=== PATIENT | female | born 1970 | race Caucasian/White ===

== ENCOUNTER → 2017-02-21 | Outpatient (CLI) | payer MEDICAID ==
--- NOTE | 2017-02-25 12:41 | MM ---
Reason for exam: follow-up at short interval from prior study. Last mammogram was performed 7 months ago. History: Patient is postmenopausal. Family history of breast cancer in cousin at age 52. Physical Findings: Nurse did not find any significant physical abnormalities on exam. MG 3D Diag Mammo W/Cad XENA Bilateral CC and MLO view(s) were taken. Prior study comparison: August 05, 2016, bilateral MG 3d screening mammo w/cad. July 01, 2015, bilateral MG screening mammo w CAD. The breast tissue is almost entirely fat. The tiny 3mm nodules 1 on each side are unchanged. No significant new findings when compared with previous films. These results were verbally communicated with the patient and result sheet given to the patient on 02/21/17. ASSESSMENT: Negative, BI-RAD 1 RECOMMENDATION: Routine screening mammogram of both breasts in 1 year.
== END | disposition home or self-care (01) ==
LOC: RADMAMWWP 06:52
PROVIDERS: ATTEND Obstetrics & Gynecology
DX: R92.8 Other abnormal and inconclusive findings on diagnostic imaging of breast (principal)
CPT/HCPCS: G0204; G0279

== ENCOUNTER → 2017-04-28 | Outpatient (CLI) | payer MEDICAID ==
--- NOTE | 2017-04-28 10:36 | US ---
EXAMINATION TYPE: US kidneys/renal and bladder DATE OF EXAM: 04/28/2017 COMPARISON: CT abdomen and pelvis November 01, 2015 CLINICAL HISTORY: G89.29 Chronic back pain. Rt back pain since December 2016, no known injury EXAM MEASUREMENTS: Right Kidney: 9.6 x 4.9 x 5.6 cm Left Kidney: 10.9 x 5.2 x 5.7 cm Right Kidney: wnl Left Kidney: wnl Bladder: wnl Bilateral Jets seen: yes There is no evidence for hydronephrosis at this point in time. No nephrolithiasis is seen. No zahra s are identified. The urinary bladder is anechoic. Bilateral ureteral jets are seen. IMPRESSION: No significant finding is seen to account for patient's symptoms.
== END | disposition home or self-care (01) ==
LOC: RADUSWWP 10:10
PROVIDERS: ATTEND Internal Medicine
DX: G89.29 Other chronic pain (principal)
CPT/HCPCS: 76770

== ENCOUNTER 2018-02-07 17:55 | Emergency (ER) | payer MEDICAID ==
[2018-02-07 18:00] VITALS: RESP 18; TEMP 97.9
[2018-02-07] MEDS ORDERED: SODIUM CHLORIDE 0.9% 500 ML IV STA (18:05)
[2018-02-07 18:34] LABS: Basophils # (A) 0.1 k/uL (0-0.2); Basophils % (A) 1 %; Eosinophils # (A) 0.5 k/uL (0-0.7); Eosinophils % (A) 4 %; HCT 41.7 % (34.0-46.0); HGB 14.2 gm/dL (11.4-16.0); Lymphocytes # (A) 1.9 k/uL (1.0-4.8); Lymphocytes % (A) 15 %; MCH 29.7 pg (25.0-35.0); MCV 87.3 fL (80.0-100.0); Mean Platelet Volume 8.8; Monocytes # (A) 0.7 k/uL (0-1.0); Monocytes % (A) 5 %; Neutrophils # (A) 9.3 k/uL (1.3-7.7); Neutrophils % (A) 74 %; Platelet Count 191 k/uL (150-450); RBC 4.78 m/uL (3.80-5.40); RDW 12.8 % (11.5-15.5); WBC 12.6 k/uL (3.8-10.6)
--- NOTE | 2018-02-07 18:47 | XR ---
EXAMINATION TYPE: XR KUB DATE OF EXAM: 02/07/2018 COMPARISON: NONE HISTORY: Pain TECHNIQUE: One view abdominal series FINDINGS: The osseous structures are intact. The bowel gas pattern is nonspecific. Lung bases are clear. Surg ical clips in the gallbladder fossa. Arthropathy of the hips. IMPRESSION: 1. Nonspecific abdomen.
--- NOTE | 2018-02-07 18:47 | XR ---
EXAMINATION TYPE: XR chest 2V DATE OF EXAM: 02/07/2018 COMPARISON: NONE TECHNIQUE: PA and lateral views submitted. HISTORY: Cough FINDINGS: The lungs are clear and there is no pneumothorax, pleural effusion, or focal pneumonia. Hypertrophi c and degenerative change of the spine. IMPRESSION: 1. No acute process.
[2018-02-07 18:48] LABS: Albumin 4.1 g/dL (3.5-5.0); Calcium 9.6 mg/dL (8.4-10.2); Potassium 4.1 mmol/L (3.5-5.1); Total Bilirubin 0.4 mg/dL (0.2-1.3); Total Protein 7.3 g/dL (6.3-8.2)
[2018-02-07 18:48] LABS: Appearance,Urine Cloudy (Clear); Bacteria,Urine Rare /hpf; Bilirubin,Urine Negative (Negative); Blood,Urine Negative (Negative); Color,Urine Yellow; Glucose,Urine (UA) Negative (Negative); Ketones,Urine Trace (Negative); Leukocyte Esterase,Urine Small (Negative); Mucus,Urine Rare /hpf; Nitrite,Urine Negative (Negative); Protein,Urine Negative (Negative); Specific Gravity,Urine 1.017 (1.001-1.035); Squamous Epithelial Cell,Urine 7 /hpf (0-4); WBC,Urine 5 /hpf (0-5)
[2018-02-07 19:02] VITALS: BP 139/77; PULSE 86
--- NOTE | 2018-02-07 19:05 | ED ---
General Adult HPI - General Chief complaint: Abdominal Pain Stated complaint: Rib/Breast pain Time Seen by Provider: 02/07/18 18:01 Source: patient, RN notes reviewed Mode of arrival: ambulatory Limitations: no limitations - History of Present Illness Initial comments: This a 47-year-old female presents emergency department with chief complaint of right-sided rib pain. Patient states she had no trauma but states it started hurting today. Patient states is worse with movement and deep inspiration. She has no associated shortness of breath. She does admit that she's been coughing for last month. Denies any abdominal pain she's had a prior closed second denies any nausea vomiting diarrhea constipation. No fevers no chills. Patient states that she is a smoker. - Related Data Home Medications Medication Instructions Recorded Confirmed Albuterol Sulfate [Proair Hfa] 8.5 gm DAILY 07/31/15 11/01/15 Previous Rx's Medication Instructions Recorded Lactulose [Constulose] 10 gm PO DAILY 7 Days ml 11/01/15 Acetaminophen-Codeine 300-30mg 1 tab PO Q4H PRN #14 tablet 02/07/18 [Tylenol #3] Ibuprofen [Motrin] 600 mg PO Q8HR PRN #30 tab 02/07/18 Allergies Allergy/AdvReac Type Severity Reaction Status Date / Time No Known Allergies Allergy Verified 11/01/15 15:00 Review of Systems ROS Statement: Those systems with pertinent positive or pertinent negative responses have been documented in the HPI. ROS Other: All systems not noted in ROS Statement are negative. Past Medical History Past Medical History: Asthma History of Any Multi-Drug Resistant Organisms: None Reported Past Surgical History: Adenoidectomy, Section, Cholecystectomy, Orthopedic Surgery, Tonsillectomy Past Psychological History: No Psychological Hx Reported Smoking Status: Current every day smoker Past Alcohol Use History: None Reported, Occasional Past Drug Use History: None Reported General Exam Limitations: no limitations General appearance: alert, in no apparent distress Head exam: Present: atraumatic, normocephalic, normal inspection Neck exam: Present: normal inspection, full ROM. Absent: tenderness, meningismus, lymphadenopathy Respiratory exam: Present: normal lung sounds bilaterally, chest wall tenderness (Moderate anterior to lateral right-sided). Absent: respiratory distress, wheezes, rales, rhonchi, stridor Cardiovascular Exam: Present: regular rate, normal rhythm, normal heart sounds. Absent: systolic murmur, diastolic murmur, rubs, gallop, clicks GI/Abdominal exam: Present: soft, normal bowel sounds. Absent: distended, tenderness, guarding, rebound, rigid Course Vital Signs 02/07/18 17:57 Temperature 97.9 F Pulse Rate 89 Respiratory 18 Rate Blood Pressure 137/80 O2 Sat by Pulse 97 Oximetry Medical Decision Making - Medical Decision Making 47-year-old female presents to the ER for right rib pain. Patient's pain is reproducible into more related to costochondritis she has had a cough for about a month but is a smoker. Patient x-ray reviewed no evidence of pneumothorax or pneumonia. no resting shortness of breath. Patient has no abdominal pain. Lab work was reviewed. Patient will be discharged at this time with anti -inflammatories and pain medication. Return parameters were discussed. - Lab Data Result diagrams: 02/07/18 18:21 02/07/18 18:21 Lab Results 02/07/18 02/07/18 02/07/18 Range/Units 18:21 18:21 18:30 WBC 12.6 H (3.8-10.6) k/uL RBC 4.78 (3.80-5.40) m/uL Hgb 14.2 (11.4-16.0) gm/dL Hct 41.7 (34.0-46.0) % MCV 87.3 (80.0-100.0) fL MCH 29.7 (25.0-35.0) pg MCHC 34.0 (31.0-37.0) g/dL RDW 12.8 (11.5-15.5) % Plt Count 191 (150-450) k/uL Neutrophils % 74 % Lymphocytes % 15 % Monocytes % 5 % Eosinophils % 4 % Basophils % 1 % Neutrophils # 9.3 H (1.3-7.7) k/uL Lymphocytes # 1.9 (1.0-4.8) k/uL Monocytes # 0.7 (0-1.0) k/uL Eosinophils # 0.5 (0-0.7) k/uL Basophils # 0.1 (0-0.2) k/uL Sodium 141 (137-145) mmol/L Potassium 4.1 (3.5-5.1) mmol/L Chloride 106 (98-107) mmol/L Carbon Dioxide 23 (22-30) mmol/L Anion Gap 12 mmol/L BUN 19 H (7-17) mg/dL Creatinine 0.90 (0.52-1.04) mg/dL Est GFR (CKD-EPI)AfAm 88 (>60 ml/min/1.73 sqM) Est GFR (CKD-EPI)NonAf 76 (>60 ml/min/1.73 sqM) Glucose 97 (74-99) mg/dL Calcium 9.6 (8.4-10.2) mg/dL Total Bilirubin 0.4 (0.2-1.3) mg/dL AST 33 (14-36) U/L ALT 35 (9-52) U/L Alkaline Phosphatase 100 (38-126) U/L Total Protein 7.3 (6.3-8.2) g/dL Albumin 4.1 (3.5-5.0) g/dL Amylase 40 (30-110) U/L Lipase 143 (23-300) U/L Urine Color Yellow Urine Appearance Cloudy H (Clear) Urine pH 6.0 (5.0-8.0) Ur Specific [place] 1.017 (1.001-1.035) Urine Protein Negative (Negative) Urine Glucose (UA) Negative (Negative) Urine Ketones Trace H (Negative) Urine Blood Negative (Negative) Urine Nitrite Negative (Negative) Urine Bilirubin Negative (Negative) Urine Urobilinogen 2.0 (<2.0) mg/dL Ur Leukocyte Esterase Small H (Negative) Urine WBC 5 (0-5) /hpf Ur Squamous Epith Cells 7 H (0-4) /hpf Urine Bacteria Rare H (None) /hpf Urine Mucus Rare H (None) /hpf Disposition Clinical Impression: Costochondritis, acute Disposition: HOME SELF-CARE Condition: Stable Instructions: Costochondritis (ED) Additional Instructions: Please return to the Emergency Department if symptoms worsen or any other concerns. Prescriptions: Acetaminophen-Codeine 300-30mg [Tylenol #3] 1 tab PO Q4H PRN #14 tablet PRN Reason: pain Ibuprofen [Motrin] 600 mg PO Q8HR PRN #30 tab PRN Reason: Pain Is patient prescribed a controlled substance at d/c from ED?: Yes If prescribed controlled substance>3 days was MAPS reviewed?: No When asked, does pt state using other controlled substances?: No Referrals: Miki Valdovinos MD [Primary Care Provider] - 1-2 days Time of Disposition: 19:05
== END 2018-02-07 19:45 | disposition home or self-care (01) ==
LOC: EC 17:55
DX: M94.0 Chondrocostal junction syndrome [Tietze] (principal); J45.909 Unspecified asthma, uncomplicated; F17.200 Nicotine dependence, unspecified, uncomplicated; Z90.49 Acquired absence of other specified parts of digestive tract; Z79.899 Other long term (current) drug therapy
CPT/HCPCS: 36415; 71046; 74018; 80053; 81001; 82150; 83690; 85025; 96360; 99284

== ENCOUNTER → 2018-04-22 | Outpatient (CLI) | payer MEDICAID ==
--- NOTE | 2018-04-23 11:00 | MM ---
Reason for exam: screening (asymptomatic). Last mammogram was performed 1 year and 2 months ago. History: Patient is postmenopausal. Family history of breast cancer in cousin at age 52. Physical Findings: A clinical breast exam by your physician is recommended on an annual basis and results should be correlated with mammographic findings. MG 3D Screening Mammo W/Cad Bilateral CC and MLO view(s) were taken. Prior study comparison: February 21, 2017, bilateral MG 3d diag mammo w/cad XENA. August 05, 2016, bilateral MG 3d screening mammo w/cad. There are scattered fibroglandular densities. There is no discrete abnormality. No significant changes when compared with prior studies. ASSESSMENT: Negative, BI-RAD 1 RECOMMENDATION: Routine screening mammogram of both breasts in 1 year.
== END | disposition home or self-care (01) ==
LOC: RADMAMWWP 16:55
PROVIDERS: ATTEND Obstetrics & Gynecology
DX: Z12.31 Encounter for screening mammogram for malignant neoplasm of breast (principal)
CPT/HCPCS: 77063; 77067

== ENCOUNTER → 2020-01-07 | Outpatient (CLI) | payer MEDICAID ==
[2020-01-07 08:41] LABS: Basophils # (A) 0.1 k/uL (0-0.2); Basophils % (A) 1 %; Eosinophils # (A) 0.6 k/uL (0-0.7); Eosinophils % (A) 7 %; HCT 46.5 % (34.0-46.0); HGB 15.3 gm/dL (11.4-16.0); Lymphocytes # (A) 1.6 k/uL (1.0-4.8); Lymphocytes % (A) 20 %; MCH 29.3 pg (25.0-35.0); MCHC 32.9 g/dL (31.0-37.0); MCV 89.2 fL (80.0-100.0); Mean Platelet Volume 7.5; Monocytes # (A) 0.5 k/uL (0-1.0); Monocytes % (A) 6 %; Neutrophils # (A) 4.9 k/uL (1.3-7.7); Neutrophils % (A) 62 %; Platelet Count 314 k/uL (150-450); RBC 5.21 m/uL (3.80-5.40); RDW 12.8 % (11.5-15.5); WBC 7.9 k/uL (3.8-10.6)
[2020-01-07 09:51] LABS: Appearance,Urine Clear (Clear); Bilirubin,Urine Negative (Negative); Blood,Urine Negative (Negative); Color,Urine Yellow; Glucose,Urine (UA) Negative (Negative); Ketones,Urine Negative (Negative); Leukocyte Esterase,Urine Negative (Negative); Nitrite,Urine Negative (Negative); PH, Urine 6.5 (5.0-8.0); Protein,Urine Negative (Negative); Specific Gravity,Urine 1.016 (1.001-1.035); Urobilinogen,Urine <2.0 mg/dL (<2.0)
[2020-01-07 15:26] LABS: African American GFR (CKD) 117.1 (60.0-200.0); Albumin 4.4 g/dL (3.80-4.90); Albumin/Globulin Ratio 1.57 (1.60-3.17); Anion Gap 9.1 mmol/L (4.00-12.00); BUN/Creat Ratio 15.71 Ratio (12.00-20.00); Calcium 9.5 mg/dL (8.7-10.3); Carbon Dioxide 26.9 mmol/L (21.6-31.8); Globulin 2.8 g/dL (1.6-3.3); LDL Cholesterol,Calculated 128.6 mg/dL (0.0-131.0); Potassium 4.5 mmol/L (3.5-5.5); Total Bilirubin 0.3 mg/dL (0.3-1.2); Total Protein 7.2 g/dL (6.2-8.2); VLDL Calculation 24.4 mg/dL (5.00-40.00)
[2020-01-07 20:02] LABS: Hemoglobin A1C 5.4 % (4.0-6.0)
== END | disposition home or self-care (01) ==
LOC: LABWHC1 08:05
PROVIDERS: ATTEND Internal Medicine
DX: I10 Essential (primary) hypertension (principal); E66.01 Morbid (severe) obesity due to excess calories; E55.9 Vitamin D deficiency, unspecified; R73.03 Prediabetes
CPT/HCPCS: 36415; 80053; 80061; 81003; 82306; 83036; 84443; 85025

== ENCOUNTER 2020-05-16 08:31 | Day surgery (SDC) | payer MEDICAID ==
[2020-05-11 08:16] VITALS: BMI 44.8
[~2020-05-16 08:31] MED LIST: LACTATED RINGERS 1,000 ML IV SCH; LIDOCAINE 1% (10MG/ML) FOR IV START INTRADERMA PRN
[2020-05-16 09:05] VITALS: TEMP 98.4
[2020-05-16] MEDS ORDERED: LIDOCAINE 1% INJ 10MG/ML (20 ML MDV) ONE (09:21)
[2020-05-16] MEDS ORDERED: PROPOFOL 10 MG/ML 20 ML VIAL IV ONE (09:21)
--- NOTE | 2020-05-16 09:24 | P.GSHP ---
History of Present Illness H&P Date: 05/16/20 Chief Complaint: Colon cancer screening Patient here today for screening colonoscopy. She has not had 1 previously. No bowel related complaints. No family history of colon cancer. Past Medical History Past Medical History: Asthma History of Any Multi-Drug Resistant Organisms: None Reported Past Surgical History: Adenoidectomy, Section, Cholecystectomy, Orthopedic Surgery, Tonsillectomy Additional Past Surgical History / Comment(s): rt knee arthroscopy, trigger thumb Past Anesthesia/Blood Transfusion Reactions: No Reported Reaction Smoking Status: Current every day smoker Medications and Allergies Home Medications Medication Instructions Recorded Confirmed Type Albuterol Sulfate [Proair Hfa] 8.5 gm INHALATION DAILY PRN 07/31/15 05/16/20 History Ibuprofen [Motrin] 600 mg PO Q8HR PRN #30 tab 02/07/18 05/16/20 Rx Calcium Carbonate [Calcium] 600 mg PO DAILY 05/11/20 05/16/20 History Ergocalciferol [Vitamin D2] 50,000 unit PO DAILY 05/11/20 05/16/20 History Garlic 1 each PO DAILY 05/11/20 05/16/20 History Magnesium 200 mg PO DAILY 05/11/20 05/16/20 History [place]'s Wort 150 mg PO DAILY 05/11/20 05/16/20 History Allergies Allergy/AdvReac Type Severity Reaction Status Date / Time No Known Allergies Allergy Verified 05/16/20 08:55 Surgical - Exam Vital Signs Temp Pulse Resp BP Pulse Ox 98.4 F 81 18 145/82 96 05/16/20 09:03 05/16/20 09:03 05/16/20 09:03 05/16/20 09:03 05/16/20 09:03 Physical exam: General: Well-developed, well-nourished HEENT: Normocephalic, sclerae nonicteric Abdomen: Nontender, nondistended Extremities: No edema Neuro: Alert and oriented Assessment and Plan (1) Colon cancer screening Narrative/Plan: Will proceed with colonoscopy at this time Current Visit: Yes Status: Acute Code(s): Z12.11 - ENCOUNTER FOR SCREENING FOR MALIGNANT NEOPLASM OF COLON SNOMED Code(s): 349152898
--- NOTE | 2020-05-16 09:39 | P.PCN ---
Date of Procedure: 05/16/20 Procedure(s) Performed: PREOPERATIVE DIAGNOSIS: Colon cancer screening POSTOPERATIVE DIAGNOSIS:: Colon polyp 2, diverticulosis PROCEDURE: Colonoscopy snare polypectomy ANESTHESIA: MAC SURGEON: Carlos Stewart M.D. SPECIMENS: Sigmoid polyps ENDOSCOPIC PROCEDURE: The patient was placed on the endoscopy table in the left decubitus position. The Olympus colonoscope was inserted into the anus and passed under direct visualization to the base of the cecum. The appendiceal orifice was visualized. From that point the scope was slowly withdrawn inspecting all surfaces carefully. There were no neoplastic inflammatory or polypoid lesions throughout the cecum, ascending, transverse, and descending colon. 2 small polyps were seen in the sigmoid colon. Both removed using the snare with cautery technique. The remainder of the sigmoid and rectum appeared normal. There was mild left-sided diverticulosis present. The patient's prep was somewhat suboptimal with some retained stool seen scattered throughout the colon. Digital rectal examination was normal. The patient was taken to the recovery room in stable condition per anesthesia guidelines. RECOMMENDATIONS: Await biopsy results. Anticipate colonoscopy 5-10 years.
[2020-05-16 09:48] VITALS: PULSE 74
[2020-05-16 10:04] VITALS: BP 124/72; RESP 16
== END 2020-05-16 10:15 | disposition home or self-care (01) ==
LOC: ORWHC2ENDO 08:31
PROVIDERS: ATTEND Surgery
DX: Z12.11 Encounter for screening for malignant neoplasm of colon (principal); D12.5 Benign neoplasm of sigmoid colon; K57.30 Diverticulosis of large intestine without perforation or abscess without bleeding; J45.909 Unspecified asthma, uncomplicated; F17.200 Nicotine dependence, unspecified, uncomplicated; E66.01 Morbid (severe) obesity due to excess calories; Z90.49 Acquired absence of other specified parts of digestive tract; Z98.890 Other specified postprocedural states; Z98.891 History of uterine scar from previous surgery; Z90.89 Acquired absence of other organs; Z79.899 Other long term (current) drug therapy; Z68.42 Body mass index [BMI] 45.0-49.9, adult
CPT/HCPCS: 88305; 45385; J2001; J2704

== ENCOUNTER 2020-11-07 10:05 | Emergency (ER) | payer MEDICAID, OTHER ==
[2020-11-07 10:12] VITALS: BP 118/85; PULSE 76; RESP 18; TEMP 98.6
--- NOTE | 2020-11-07 11:04 | ED ---
General Adult HPI - General Chief complaint: Extremity Injury, Lower Stated complaint: IHS-ankle injury Time Seen by Provider: 11/07/20 10:19 Source: patient, RN notes reviewed Mode of arrival: ambulatory Limitations: no limitations - History of Present Illness Initial comments: This a 50-year-old female presents emergency Department chief complaint left foot ankle pain. Patient states that she was working states that she felt a pop felt she injured her left ankle. Patient has pain along the ankle, heel region. She states she is currently seen Dr. Orosco for plantar fasciitis has had recent injection in her foot. Patient states that there is a small crack on her foot which has been there are no increasing redness fevers or chills no paresthesias. - Related Data Home Medications Medication Instructions Recorded Confirmed Calcium/Magnes 1 tab PO DAILY 11/07/20 11/07/20 Cholecalciferol [Vitamin D3 (25 25 mcg PO DAILY 11/07/20 11/07/20 Mcg = 1000 Iu)] Echinacea 400 mg PO DAILY 11/07/20 11/07/20 Ibuprofen [Motrin Ib] 800 mg PO BID 11/07/20 11/07/20 Multivitamins, Thera [Multivitamin 1 tab PO DAILY 11/07/20 11/07/20 (formulary)] Vitamin B Complex 1 cap PO DAILY 11/07/20 11/07/20 Allergies Allergy/AdvReac Type Severity Reaction Status Date / Time No Known Allergies Allergy Verified 11/07/20 10:45 Review of Systems ROS Statement: Those systems with pertinent positive or pertinent negative responses have been documented in the HPI. ROS Other: All systems not noted in ROS Statement are negative. Past Medical History Past Medical History: Asthma History of Any Multi-Drug Resistant Organisms: None Reported Past Surgical History: Adenoidectomy, Section, Cholecystectomy, Orthop edic Surgery, Tonsillectomy Additional Past Surgical History / Comment(s): rt knee arthroscopy, trigger thumb Past Anesthesia/Blood Transfusion Reactions: No Reported Reaction Past Psychological History: No Psychological Hx Reported Smoking Status: Current every day smoker Past Alcohol Use History: None Reported Past Drug Use History: None Reported General Exam Limitations: no limitations General appearance: alert, in no apparent distress Head exam: Present: atraumatic, normocephalic, normal inspection Eye exam: Present: normal appearance, PERRL, EOMI. Absent: scleral icterus, conjunctival injection, periorbital swelling Neck exam: Present: normal inspection. Absent: tenderness, meningismus, lymphad enopathy Respiratory exam: Present: normal lung sounds bilaterally. Absent: respiratory distress, wheezes, rales, rhonchi, stridor Cardiovascular Exam: Present: regular rate, normal rhythm, normal heart sounds. Absent: systolic murmur, diastolic murmur, rubs, gallop, clicks Extremities exam: Present: other (Left foot there is some tenderness along the ankle, heel region patient has full range of motion neurovascular intact there is a small crack in the skin noted on the medial aspect of the foot with minimal erythema no drainage there is no proximal tib-fib tenderness, intact Achilles with normal Thomp) Neurological exam: Present: reflexes normal. Absent: motor sensory deficit Course Vital Signs 11/07/20 10:09 Temperature 98.6 F Pulse Rate 76 Respiratory 18 Rate Blood Pressure 118/85 O2 Sat by Pulse 96 Oximetry Procedures - Orthopedic Splinting/Casting Injury #1 Side: left Lower Extremity Injury Location: short leg, ankle Lower Extremity Immobilizer: posterior splint, synthetic pre-padded splint Other Orthopedic Equipment: crutches Medical Decision Making - Medical Decision Making X-ray shows possible avulsion fracture posterior tibia patient does have localized tenderness. Patient we discharged in stable condition. Disposition Clinical Impression: Closed fracture of left distal tibia Disposition: HOME SELF-CARE Condition: Stable Instructions (If sedation given, give patient instructions): Leg Fracture (ED) Additional Instructions: Please return to the Emergency Department if symptoms worsen or any other concerns. Is patient prescribed a controlled substance at d/c from ED?: No Referrals: Miki Valdovinos MD [Primary Care Provider] - 1-2 days Clarke Qiu MD [STAFF PHYSICIAN] - 1-2 days Time of Disposition: 11:22
--- NOTE | 2020-11-07 11:09 | XR ---
Left ankle HISTORY: Pain 3 views of the left ankle There is soft tissue swelling present. Alignment and joint spaces are maintained. The posterior aspec t of the distal tibia there is a small ossific density suggesting a minimal chip fracture. There is a plantar calcaneal spur. IMPRESSION: Correlate for posterior pain at the distal tibia.
== END 2020-11-07 11:35 | disposition home or self-care (01) ==
LOC: EC 10:05
DX: S82.302A Unspecified fracture of lower end of left tibia, initial encounter for closed fracture (principal); F17.200 Nicotine dependence, unspecified, uncomplicated; X50.9XXA Other and unspecified overexertion or strenuous movements or postures, initial encounter; Y92.69 Other specified industrial and construction area as the place of occurrence of the external cause; Y99.0 Civilian activity done for income or pay
CPT/HCPCS: 29515; 99283

== ENCOUNTER 2021-04-25 10:14 | Emergency (ER) | payer MEDICAID ==
[2021-04-25] MEDS ORDERED: IBUPROFEN 800 MG TAB PO STA (11:03)
--- NOTE | 2021-04-25 11:33 | XR ---
EXAM TYPE: LUMBAR SPINE X RAY SERIES COMPARISON: NONE HISTORY: Pain TECHNIQUE: 4 views are submitted. FINDINGS: Alignment is anatomic. The pedicles are intact. The transverse processes are intact. There is hype rtrophic and degenerative changes with facet arthropathy. Foraminal encroachment L4-5 and L5-S1. Surg ical clips right upper quadrant. IMPRESSION: 1. Degenerative change with facet arthropathy L4-5 and L5-S1. There may be minimal anterolisthesis of L4 on L5. Recommend follow-up MRI.
[2021-04-25 12:11] LABS: Appearance,Urine Cloudy (Clear); Bacteria,Urine Rare /hpf; Bilirubin,Urine Negative (Negative); Blood,Urine Negative (Negative); Color,Urine Yellow; Glucose,Urine (UA) Negative (Negative); Ketones,Urine Negative (Negative); Leukocyte Esterase,Urine Negative (Negative); Mucus,Urine Rare /hpf; Nitrite,Urine Negative (Negative); PH, Urine 6.5 (5.0-8.0); Protein,Urine Negative (Negative); RBC,Urine <1 /hpf (0-5); Squamous Epithelial Cell,Urine 5 /hpf (0-4); Urobilinogen,Urine <2.0 mg/dL (<2.0); WBC,Urine 1 /hpf (0-5)
--- NOTE | 2021-04-25 12:30 | ED ---
Back Pain HPI - General Chief Complaint: Back Pain/Injury Stated Complaint: back pain Time Seen by Provider: 04/25/21 10:42 Source: patient, RN notes reviewed Limitations: no limitations - History of Present Illness Initial Comments: 51-year-old female presented for low back pain. Patient states that started a week ago or so. Patient states she may have injured it by twisting wrong. Patient denies any major history of back issues. Denies any any bowel or bladder incontinence or retention of saddle anesthesias no abdominal complaints. - Related Data Home Medications Medication Instructions Recorded Confirmed Calcium/Magnes 1 tab PO DAILY 11/07/20 11/07/20 Cholecalciferol [Vitamin D3 (25 25 mcg PO DAILY 11/07/20 11/07/20 Mcg = 1000 Iu)] Echinacea 400 mg PO DAILY 11/07/20 11/07/20 Ibuprofen [Motrin Ib] 800 mg PO BID 11/07/20 11/07/20 Multivitamins, Thera [Multivitamin 1 tab PO DAILY 11/07/20 11/07/20 (formulary)] Vitamin B Complex 1 cap PO DAILY 11/07/20 11/07/20 Previous Rx's Medication Instructions Recorded Cyclobenzaprine [Flexeril] 10 mg PO TID PRN #15 tab 04/25/21 Ibuprofen [Motrin] 800 mg PO Q6HR #30 tab 04/25/21 predniSONE 50 mg PO DAILY #5 tab 04/25/21 Allergies Allergy/AdvReac Type Severity Reaction Status Date / Time No Known Allergies Allergy Verified 04/25/21 10:15 Review of Systems ROS Statement: Those systems with pertinent positive or pertinent negative responses have been documented in the HPI. ROS Other: All systems not noted in ROS Statement are negative. Past Medical History Past Medical History: Asthma History of Any Multi-Drug Resistant Organisms: None Reported Past Surgical History: Adenoidectomy, Section, Cholecystectomy, Orthop edic Surgery, Tonsillectomy Additional Past Surgical History / Comment(s): rt knee arthroscopy, trigger thumb Past Anesthesia/Blood Transfusion Reactions: No Reported Reaction Past Psychological History: No Psychological Hx Reported Smoking Status: Current every day smoker Past Alcohol Use History: Occasional Past Drug Use History: None Reported General Exam Limitations: no limitations General appearance: alert, in no apparent distress Head exam: Present: atraumatic, normocephalic, normal inspection Neck exam: Present: normal inspection, full ROM. Absent: tenderness, meningismus, lymphadenopathy Respiratory exam: Present: normal lung sounds bilaterally. Absent: respiratory distress, wheezes, rales, rhonchi, stridor Cardiovascular Exam: Present: regular rate, normal rhythm, normal heart sounds. Absent: systolic murmur, diastolic murmur, rubs, gallop, clicks GI/Abdominal exam: Present: soft, normal bowel sounds. Absent: distended, tenderness, guarding, rebound, rigid Extremities exam: Present: other (Lower extremity bilaterally equal strength neurovascular intact) Back exam: Present: full ROM, tenderness, paraspinal tenderness. Absent: vertebral tenderness Neurological exam: Present: alert, oriented X3, CN II-XII intact, reflexes normal. Absent: motor sensory deficit Course Vital Signs 04/25/21 10:15 Temperature 97.7 F Pulse Rate 87 Respiratory 16 Rate Blood Pressure 159/102 O2 Sat by Pulse 96 Oximetry Medical Decision Making - Medical Decision Making X-ray shows degenerative changes urinalysis is unremarkable. Patient to for acute number back pain. Patient will follow-up with orthopedics if no improvement return parameters were discussed. - Lab Data Lab Results 04/25/21 Range/Units 11:12 Urine Color Yellow Urine Appearance Cloudy H (Clear) Urine pH 6.5 (5.0-8.0) Ur Specific [place] 1.020 (1.001-1.035) Urine Protein Negative (Negative) Urine Glucose (UA) Negative (Negative) Urine Ketones Negative (Negative) Urine Blood Negative (Negative) Urine Nitrite Negative (Negative) Urine Bilirubin Negative (Negative) Urine Urobilinogen <2.0 (<2.0) mg/dL Ur Leukocyte Esterase Negative (Negative) Urine RBC <1 (0-5) /hpf Urine WBC 1 (0-5) /hpf Ur Squamous Epith Cells 5 H (0-4) /hpf Urine Bacteria Rare H (None) /hpf Urine Mucus Rare H (None) /hpf Disposition Clinical Impression: Strain of lumbar region Disposition: HOME SELF-CARE Condition: Stable Instructions (If sedation given, give patient instructions): Acute Low Back Pain (ED) Additional Instructions: Please return to the Emergency Department if symptoms worsen or any other concerns. Prescriptions: Cyclobenzaprine [Flexeril] 10 mg PO TID PRN #15 tab PRN Reason: Muscle Spasm Ibuprofen [Motrin] 800 mg PO Q6HR #30 tab predniSONE 50 mg PO DAILY #5 tab Is patient prescribed a controlled substance at d/c from ED?: No Referrals: Agata Gordon MD [Primary Care Provider] - 1-2 days Chapin Goncalves DO [Doctor of Osteopathic Medicine] - 1-2 days Time of Disposition: 12:30
[2021-04-25] MEDS ORDERED: ACET/COD 300 MG/30 MG STARTER PACK 6 TAB BTL PO STA (12:31)
[2021-04-25 13:41] VITALS: BP 132/90; PULSE 71; RESP 18; TEMP 98.2
== END 2021-04-25 13:20 | disposition home or self-care (01) ==
LOC: EC 10:14
DX: S39.012A Strain of muscle, fascia and tendon of lower back, initial encounter (principal); J45.909 Unspecified asthma, uncomplicated; F17.200 Nicotine dependence, unspecified, uncomplicated; Z90.49 Acquired absence of other specified parts of digestive tract; Z90.89 Acquired absence of other organs; X50.0XXA Overexertion from strenuous movement or load, initial encounter
CPT/HCPCS: 72110; 81001; 99283

== ENCOUNTER → 2021-06-01 | Outpatient (CLI) | payer MEDICAID ==
--- NOTE | 2021-06-07 09:21 | MM ---
Reason for exam: screening (asymptomatic). Last mammogram was performed 3 years and 1 month ago. History: Patient is postmenopausal. Family history of breast cancer in cousin at age 52. Took hormonal contraceptives for 28 years beginning at age 16. Physical Findings: A clinical breast exam by your physician is recommended on an annual basis and results should be correlated with mammographic findings. MG Screening Mammo w CAD Bilateral CC and MLO view(s) were taken. Prior study comparison: April 22, 2018, bilateral MG 3d screening mammo w/cad. February 21, 2017, bilateral MG 3d diag mammo w/cad XENA. August 05, 2016, bilateral MG 3d screening mammo w/cad. The breast tissue is almost entirely fat. There is no discrete abnormality. ASSESSMENT: Negative, BI-RAD 1 RECOMMENDATION: Routine screening mammogram of both breasts in 1 year.
== END | disposition home or self-care (01) ==
LOC: RADMAMWWP 15:20
PROVIDERS: ATTEND Obstetrics & Gynecology
DX: Z12.31 Encounter for screening mammogram for malignant neoplasm of breast (principal); Z78.0 Asymptomatic menopausal state; Z80.3 Family history of malignant neoplasm of breast; Z79.3 Long term (current) use of hormonal contraceptives
CPT/HCPCS: 77067

== ENCOUNTER → 2021-08-10 | Outpatient (CLI) | payer MEDICAID, OTHER | END | disposition home or self-care (01) | LOC: LABWHC1 12:24 | PROVIDERS: ATTEND Emergency Medicine | DX: Z20.822 Contact with and (suspected) exposure to COVID-19 (principal) | CPT/HCPCS: 87635 ==

== ENCOUNTER → 2021-08-11 | Outpatient (CLI) | payer MEDICAID, OTHER | END | disposition home or self-care (01) | LOC: LABWHC1 07:27 | PROVIDERS: ATTEND Emergency Medicine | DX: Z20.822 Contact with and (suspected) exposure to COVID-19 (principal) | CPT/HCPCS: 87635 ==

== ENCOUNTER → 2021-08-20 | Outpatient (CLI) | payer MEDICAID ==
--- NOTE | 2021-08-21 03:23 | MR ---
EXAMINATION TYPE: MR foot LT wo/w con DATE OF EXAM: 08/20/2021 COMPARISON: None HISTORY: Left foot pain and swelling since 11-07-20. CONTRAST: Standard multiplanar, multisequence MRI departmental protocol images were obtained without contrast a nd with 10 mL intravenous Gadavist gadolinium contrast. Multiplanar multiecho imaging of the left foot was performed without and subsequently with intravenou s contrast. Achilles tendon is intact. Medial and lateral flexor tendons appear intact. The metatarsals are intact. The toes appear intact. I see no bony destructive process. Subtalar joint is intact. There is some soft tissue enhancement on the plantar aspect of the calcaneus. I see no focal bone gustavo truction. There is plantar calcaneal spurring. The plantar fascia appears intact. The tarsal bones ar e intact. There is no significant ankle joint effusion. IMPRESSION: Posterior plantar soft tissue enhancement consistent with cellulitis. No evidence of osteomyelitis. N o fracture. No evidence of ligament or tendon tear.
== END | disposition home or self-care (01) ==
LOC: RADMRIMAIN 21:32
PROVIDERS: ATTEND Nurse Practitioner Adult Health
DX: M79.89 Other specified soft tissue disorders (principal)
CPT/HCPCS: 73720; A9585

== ENCOUNTER → 2021-08-28 | Outpatient (CLI) | payer MEDICAID ==
[~2021-08-28] MED LIST changes: -LACTATED RINGERS 1,000 ML IV SCH; -LIDOCAINE 1% (10MG/ML) FOR IV START INTRADERMA PRN; +REGADENOSON 0.4 MG/5 ML SYRINGE IV PRN
--- NOTE | 2021-08-28 09:52 | ECHOF ---
Referral Reason:R07.9 Chest pain MEASUREMENTS -------- HEIGHT: 157.5 cm WEIGHT: 118.8 kg BP: RVIDd: 3.3 cm (< 3.3) IVSd: 1.3 cm (0.6 - 1.1) LVIDd: 3.8 cm (3.9 - 5.3) LVPWd: 1.2 cm (0.6 - 1.1) IVSs: 2.0 cm LVIDs: 2.5 cm LVPWs: 1.7 cm LA Diam: 3.7 cm (2.7 - 3.8) LAESV Index (A-L): 19.23 ml/m Ao Diam: 3.0 cm (2.0 - 3.7) AV Cusp: 1.9 cm (1.5 - 2.6) MV EXCURSION: 11.820 mm (> 18.000) MV EF SLOPE: 81 mm/s (70 - 150) EPSS: 0.6 cm MV E Nick: 0.89 m/s MV DecT: 299 ms MV A Nick: 1.15 m/s MV E/A Ratio: 0.78 AR PHT: 377 ms RAP: 5.00 mmHg RVSP: 29.18 mmHg FINDINGS -------- Sinus rhythm. This was a technically adequate study. The left ventricular size is normal. There is mild concentric left ventricular hypertrophy. Overa ll left ventricular systolic function is normal with, an EF between 55 - 60 %. The right ventricle is mildly enlarged. Normal LA size by volume 22+/-6 ml/m2. The right atrium is normal in size. Interatrial and interventricular septum intact. Trace to mild aortic regurgitation. The mitral valve is normal. Mild tricuspid regurgitation present. Right ventricular systolic pressure is normal at < 35 mmHg. Trace/mild (physiologic) pulmonic regurgitation. The aortic root size is normal. IVC Not well visulized. There is no pericardial effusion. CONCLUSIONS -------- 1. The left ventricular size is normal. 2. There is mild concentric left ventricular hypertrophy. 3. Overall left ventricular systolic function is normal with, an EF between 55 - 60 %. 4. The right ventricle is mildly enlarged. 5. Normal LA size by volume 22+/-6 ml/m2. 6. Trace to mild aortic regurgitation. 7. Mild tricuspid regurgitation present. 8. Trace/mild (physiologic) pulmonic regurgitation. 9. There is no pericardial effusion. [facility] [employer] FORMER: DEBORAH Martinez
--- NOTE | 2021-08-28 11:56 | NM ---
EXAMINATION TYPE: NM stress lexiscan cardiolite DATE OF EXAM: 08/28/2021 COMPARISON: NONE HISTORY: Chest pain TECHNIQUE: After the intravenous administration of 9.7 mCi Tc 99m Sestamibi - Cardiolite resting SPE CT images acquired 60 minutes post injection. The patient received 0.4mg Lexiscan, 25.1 mCi Tc 99m Sestamibi - Stress images obtained [address] injection FINDINGS: Review of stress and rest SPECT images demonstrates no distinct perfusion abnormality. Gated analysi s shows normal wall motion with an estimated left ventricular ejection fraction of 44 %. IMPRESSION: No scintigraphic evidence for reversible ischemia.
--- NOTE | 2021-08-28 16:41 | EST ---
EXERCISE STRESS AGE: 51 SEX: F HT: 5'2" WT: 262 lbs. PROTOCOL: Lexiscan Cardiolite STAGE: NA DURATION OF EXERCISE: NA HEART RATE REST: 76 BLOOD PRESSURE REST: 122/80 MAXIMUM HEART RATE ACHIEVED: 89 MAXIMUM BLOOD PRESSURE: 125/76 85% MPHR: 143 100% MPHR: 168 METS: NA INDICATIONS: Chest pain, difficulty in breathing. RESULTS: Baseline EKG revealed normal sinus rhythm with poor R-wave progression over precordial leads. With Lexiscan administration, heart rate changed from 75-89 beats per minute and the blood pressure changed from 122/80 to 124/74. EKG remained unremarkable. Patient did not have any significant symptoms. By EKG criteria, this is an unremarkable Lexiscan stress test. The nuclear scan results which are more pertinent, will be reported by the radiologist. CARRIE / VISHNU: [id number] /
== END | disposition home or self-care (01) ==
LOC: RADNMMAIN 07:35
PROVIDERS: ATTEND Internal Medicine Interventional Cardiology
DX: I08.8 Other rheumatic multiple valve diseases (principal)
CPT/HCPCS: 93017; 93306; 78452; A9500; J2785

== ENCOUNTER → 2021-09-05 | Outpatient (CLI) | payer MEDICAID ==
--- NOTE | 2021-09-05 14:02 | CT ---
EXAMINATION TYPE: CT angio chest DATE OF EXAM: 09/05/2021 COMPARISON: Chest x-ray 08/30/2021 HISTORY: SOB CT DLP: 1324 mGycm Automated exposure control for dose reduction was used. CONTRAST: CTA scan of the thorax is performed with IV Contrast, patient injected with 100 mL of Isovue 370, pul monary embolism protocol. MIP images are created and reviewed. 3D reconstructed images are created on an independent workstation and reviewed. FINDINGS: LUNGS: The lungs are grossly clear, there is no concerning parenchymal mass or nodule identified. T here is no pleural effusion or pneumothorax seen. The tracheobronchial tree is patent. AORTA: No additional significant abnormality is seen. MEDIASTINUM: There is satisfactory enhancement of the pulmonary artery and its branches, there is no CT evidence for pulmonary embolism. There are no greater than 1 cm hilar or mediastinal lymph nodes. No pericardial effusion is seen. OTHER: Liver shows low attenuation likely due to hepatic steatosis. Colonic interposition noted ante rior to the liver. There is thoracic spondylosis. IMPRESSION: NO EVIDENT PULMONARY EMBOLISM. CONSIDER RESTRICTIVE LUNG DISEASE. Hepatic steatosis suspected.
== END | disposition home or self-care (01) ==
LOC: RADCTMAIN 10:23
PROVIDERS: ATTEND Internal Medicine Critical Care Medicine
DX: R06.02 Shortness of breath (principal)
CPT/HCPCS: 71275; Q9967

== ENCOUNTER → 2021-09-30 | Outpatient (CLI) | payer MEDICAID, OTHER | END | disposition home or self-care (01) | LOC: LABWHC1 08:04 | PROVIDERS: ATTEND Emergency Medicine | DX: U07.1 COVID-19 (principal) | CPT/HCPCS: 87635 ==

== ENCOUNTER → 2021-11-01 | Outpatient (CLI) | payer MEDICAID ==
--- NOTE | 2021-11-02 11:37 | BD ---
EXAMINATION TYPE: Axial Bone Density DATE OF EXAM: 11/01/2021 COMPARISON: NONE CLINICAL HISTORY: Height: 5 FT 1 1/2 IN Weight: 262 FRAX RISK QUESTIONS: Alcohol (3 or more units per day): NO Family History (Parent hip fracture): NO Glucocorticoids (More than 3mos): YES (Ex: prednisone, prednisolone, methylprednisolone, dexamethasone, and hydrocortisone). History of Fracture in Adulthood: NO Secondary Osteoporosis: 1. Type 1 Diabetes: NO 2. Hyperthyroidism: NO 3. Menopause before 45: YES 4. Malnutrition: NO 5. Chronic liver disease: NO Rheumatoid Arthritis: YES Current Tobacco Use: FORMER RISK FACTORS HISTORY OF: Surgery to Spine/Hip(right/left)/Wrist (right/left): NO Family History of Osteoporosis: YES Active: NO Diet low in dairy products/other sources of calcium: NO Postmenopausal woman: YES Take estrogen and/or progesterone medications: NO Lost more than 2 inches in height since high school: NO Frequent falls: NO Poor Health: GOOD Hyperparathyroidism: NO Adrenal Insufficiency: NO MEDICATIONS: Additional Medications: MELOXICAM, INHALERS FOR ASTHMA Additional History: BRONCHIAL ASTHMA EXAM MEASUREMENTS: Bone mineral densitometry was performed using the Figure 1 System. Bone mineral density as measured about the Lumbar spine is: ----- L1-L4(G/cm2): 1.198 T Score Values are as follows: ----- L2: -0.6 ----- L3: 0.2 ----- L4: 0.8 ----- L1-L4: 0.2 Bone mineral density has: DECREASED -9.4 % since study of: 2016 Bone mineral density about the R hip (g/cm2): 0.970 Bone mineral density about the L hip (g/cm2): 0.901 T Score values are as follows: -----R Neck: -0.5 -----L Neck: -1.0 -----R Total: 1.0 -----L Total: 0.8 Bone mineral density has: DECREASED -10.6 % since study of: 2016 IMPRESSION: No evidence for osteoporosis or osteopenia. NOTE: T-SCORE=SD OF THE YOUNG ADULT MEAN.
== END | disposition home or self-care (01) ==
LOC: RADBDWWP 15:27
PROVIDERS: ATTEND Obstetrics & Gynecology
DX: N95.1 Menopausal and female climacteric states (principal)
CPT/HCPCS: 77080

== ENCOUNTER → 2021-12-08 | Outpatient (CLI) | payer MEDICAID ==
[2021-12-08 11:20] LABS: HCT 42.4 % (37.2-46.3); HGB 13.2 g/dL (12.0-15.0); MCH 27.3 pg (27.0-32.0); MCHC 31.1 g/dL (32.0-37.0); MCV 87.6 fL (80.0-97.0); Mean Platelet Volume 11.4 fL (9.5-12.2); NRBC Per 100 WBC 0 /100 WBCS (0.0-0.0); Platelet Count 195 X 10*3/uL (140-440); RBC 4.84 X 10*6/uL (4.10-5.20); RDW 13.6 % (11.5-14.5); WBC 5.82 X 10*3/uL (4.50-10.00)
[2021-12-08 11:56] LABS: ALT 48 U/L (8-44); AST 41 U/L (13-35); African American GFR (CKD) 115.5 (60.0-200.0); Albumin 3.9 g/dL (3.8-4.9); Albumin/Globulin Ratio 1.07 (1.60-3.17); Alkaline Phosphatase 130 U/L (41-126); BUN/Creat Ratio 24.86 Ratio (12.00-20.00); Blood Urea Nitrogen 17.4 mg/dL (9.0-27.0); Calcium 9.5 mg/dL (8.7-10.3); Carbon Dioxide 22.1 mmol/L (20.0-27.5); Chloride 105 mmol/L (96-109); Chol/HDL Ratio 3.58 Ratio; Globulin 3.7 g/dL (1.6-3.3); Glucose 101 mg/dL (70-110); LDL Cholesterol,Calculated 95.1 mg/dL (0.0-131.0); Non-African American GFR(CKD) 99.6 (60.0-200.0); Potassium 4.5 mmol/L (3.5-5.5); Sodium 140 mmol/L (135-145); Total Protein 7.6 g/dL (6.2-8.2)
== END | disposition home or self-care (01) ==
LOC: LABWHC1 08:48
PROVIDERS: ATTEND Family Medicine
DX: Z00.01 Encounter for general adult medical examination with abnormal findings (principal)
CPT/HCPCS: 36415; 80053; 80061; 82306; 85027

== ENCOUNTER → 2021-12-31 | Outpatient (CLI) | payer MEDICAID ==
[2021-12-31 15:58] LABS: T4, Free (Free Thyroxine) 1.23 ng/dL (0.800-1.800)
== END | disposition home or self-care (01) ==
LOC: LABWHC1 07:23
PROVIDERS: ATTEND Family Medicine
DX: R63.5 Abnormal weight gain (principal)
CPT/HCPCS: 36415; 84439; 84443

== ENCOUNTER → 2022-02-09 | Outpatient (CLI) | payer MEDICAID ==
[2022-02-09 11:21] LABS: African American GFR (CKD) 98.2 (60.0-200.0); Blood Urea Nitrogen 12.1 mg/dL (9.0-27.0); Non-African American GFR(CKD) 84.8 (60.0-200.0); Potassium 4.3 mmol/L (3.5-5.5)
== END | disposition home or self-care (01) ==
LOC: LABWHC1 08:55
PROVIDERS: ATTEND Internal Medicine Interventional Cardiology
DX: I10 Essential (primary) hypertension (principal)
CPT/HCPCS: 36415; 80051; 82565; 84520

== ENCOUNTER → 2022-07-09 | Outpatient (CLI) | payer MEDICAID ==
--- NOTE | 2022-07-09 11:54 | CT ---
EXAMINATION TYPE: CT abdomen wo con DATE OF EXAM: 07/09/2022 COMPARISON: 11/01/2015, chest 09/05/2021. HISTORY: 52-year-old female K43.9, ventral hernia TECHNIQUE: Contiguous axial scanning of the abdomen without IV contrast. Coronal and sagittal reconst ructions performed. CT DLP: 1444.90 mGycm Automated exposure control for dose reduction was used. FINDINGS: Heart normal size without pericardial effusion. Some mild strandy atelectasis in the lower lungs. No pleural effusion. A prominent 1.6 cm paracardiac lymph node overlying the right hemidiaphragm, axial image 10 appears n ew from 2015 but is noted to be stable from 09/05/2021. This suggests chronic reactive/post inflammato ry etiology. Liver enlarged at 20.1 cm with diffuse low-attenuation. Otherwise, not lack of IV contrast limits ass essment of the solid abdominal viscera, lymph nodes, and vascular structures. Prominent vania hepatic lymph nodes measuring up to 1.2 cm, unchanged. Portacaval node at 1.1 cm, unc hanged. A few border line sized retroperitoneal nodes measuring up to 9 mm are also unchanged suggest ing a chronic reactive/post inflammatory etiology. Cholecystectomy clips. Adrenal glands, kidneys, spleen, and pancreas show no gross abnormal body by noncontrast technique. No dilated small bowel, free fluid, or free air. Mild stool burden. There is a moderate-sized umbilical hernia measuring 7.7 x 7.2 cm. This contains omental fat and a no nobstructed mid segment of transverse colon. Abdominal wall defect itself measures 2.5 x 2.3 cm. A second midline omental fat-containing supraumbilical hernia measures 3.1 x 2.7 cm. There is a renetta le abdominal wall defect measuring 8 mm. Pelvis not imaged. Bones: Hypertrophic facet arthropathy mid to lower lumbar spine. [facility] lower thoracic spine. IMPRESSION: 1. MODERATE-SIZED UMBILICAL HERNIA MEASURING 7.7 CM CONTAINING FAT AND A NONOBSTRUCTED LOOP OF MID TR ANSVERSE COLON. ABDOMINAL WALL DEFECT MEASURES 2.5 CM. 2. A SECOND MIDLINE OMENTAL FAT-CONTAINING SUPRAUMBILICAL HERNIA MEASURING 3.1 CM. THE HERNIA EXTENDS THROUGH A PINHOLE ABDOMINAL WALL DEFECT MEASURING 8 MM. 3. SOME SCATTERED BORDERLINE TO MILDLY ENLARGED UPPER ABDOMINAL LYMPH NODES APPEAR LARGELY STABLE FRO 2015 SUGGESTING A BENIGN ETIOLOGY. 4. 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 CORRELATE WITH LFT's, LIPID PRO FILE, AND PATIENT RISK FACTORS.
== END | disposition home or self-care (01) ==
LOC: RADCTMAIN 10:48
PROVIDERS: ATTEND Family Medicine
DX: K42.9 Umbilical hernia without obstruction or gangrene (principal); K76.0 Fatty (change of) liver, not elsewhere classified; R59.0 Localized enlarged lymph nodes
CPT/HCPCS: 74150

== ENCOUNTER → 2022-12-12 | Outpatient (CLI) | payer MEDICAID ==
--- NOTE | 2022-12-15 12:50 | MM ---
Reason for Exam: Screening (asymptomatic). Last mammogram was performed 1 year(s) and 6 month(s) ago. Patient History: Menarche at age 12. First Full-Term at age 19. Postmenopausal. Hormonal Contraceptives, starting at age 16 for 28 years. Maternal cousin had breast cancer, age 52. Risk Values: Natasha 5 year model risk: 1.0%. NCI Lifetime model risk: 7.7%. Prior Study Comparison: 02/21/2017 Bilateral Diagnostic Mammogram, [facility]. 04/22/2018 Bilateral Screening Mammogram, [facility]. 06/01/2021 Bilateral Screening Mammogram, [facility]. Tissue Density: The breast tissue is almost entirely fat. Findings: Analyzed By CAD. There is no suspicious group of microcalcifications or new suspicious mass in either breast. Overall Assessment: Negative, BI-RAD 1 Management: Screening Mammogram of both breasts in 1 year. 1. Patient should continue monthly self breast exams. 2. A clinical breast exam by your physician is recommended on an annual basis. 3. This exam should not preclude additional follow-up of suspicious palpable abnormalities. Electronically signed and approved by: Elvin Freeman M.D. Radiologist
== END | disposition home or self-care (01) ==
LOC: RADMAMWWP 14:54
PROVIDERS: ATTEND Obstetrics & Gynecology
DX: Z12.31 Encounter for screening mammogram for malignant neoplasm of breast (principal); Z78.0 Asymptomatic menopausal state; Z80.3 Family history of malignant neoplasm of breast
CPT/HCPCS: 77063; 77067

== ENCOUNTER → 2023-08-16 | Outpatient (CLI) | payer MEDICAID ==
[2023-08-16 12:38] LABS: HCT 45.2 % (37.2-46.3); HGB 14.4 g/dL (12.0-15.0); MCH 28.7 pg (27.0-32.0); MCHC 31.9 g/dL (32.0-37.0); Mean Platelet Volume 11.3 FL (9.5-12.2); NRBC Per 100 WBC 0 X 10*3/uL (0.00-0.01); Platelet Count 259 X 10*3/uL (140-440); RBC 5.02 X 10*6/uL (4.10-5.20); RDW 13.2 % (11.5-14.5); WBC 6.82 X 10*3/uL (4.50-10.00)
[2023-08-16 13:20] LABS: ALT 44 U/L (8-44); AST 43 U/L (13-35); Albumin 4.1 g/dL (3.8-4.9); Albumin/Globulin Ratio 1.21 Ratio (1.60-3.17); Alkaline Phosphatase 130 U/L (41-126); BUN/Creat Ratio 21.86 Ratio (12.00-20.00); Blood Urea Nitrogen 15.3 mg/dL (9.0-27.0); Calcium 9.5 mg/dL (8.7-10.3); Carbon Dioxide 22.6 mmol/L (21.6-31.8); Chloride 104 mmol/L (96-109); Chol/HDL Ratio 3.49 Ratio; Globulin 3.4 g/dL (1.6-3.3); Glucose 102 mg/dL (70-110); LDL Cholesterol,Calculated 95.3 mg/dL (0.0-131.0); Potassium 4.4 mmol/L (3.5-5.5); Rheumatoid Factor, Qnt <15 IU/mL (0-15); Sodium 140 mmol/L (135-145); T4, Free (Free Thyroxine) 1.14 ng/dL (0.80-1.80); Total Bilirubin 0.4 mg/dL (0.3-1.2); Total Protein 7.5 g/dL (6.2-8.2); Uric Acid 6.2 mg/dL (2.9-7.7)
[2023-08-16 13:30] LABS: Appearance,Urine Clear (Clear); Bilirubin,Urine Negative (Negative); Blood,Urine Negative (Negative); Color,Urine Dark Yellow (Yellow); Ketones,Urine Trace (Negative); Nitrite,Urine Negative (Negative); Specific Gravity,Urine 1.021 (1.001-1.030)
[2023-08-16 13:33] LABS: Erythrocyte Sedimentation Rate 73 mm/Hr (0-30)
[2023-08-16 13:38] LABS: Bacteria,Urine 1+ (None Seen)
== END | disposition home or self-care (01) ==
LOC: LABWHC1 08:26
PROVIDERS: ATTEND Family Medicine
DX: I10 Essential (primary) hypertension (principal); M25.50 Pain in unspecified joint; R73.03 Prediabetes
CPT/HCPCS: 36415; 80053; 80061; 81001; 82306; 83036; 84439; 84443; 84550; 85027; 85652; 86038; 86140; 86200; 86225; 86235; 86431

== ENCOUNTER → 2023-08-27 | Outpatient (CLI) | payer MEDICAID ==
--- NOTE | 2023-08-28 07:33 | US ---
EXAMINATION TYPE: US carotid duplex BILAT DATE OF EXAM: 08/27/2023 COMPARISON: NONE CLINICAL INDICATION: Female, 53 years old with history of I10 ESSENTIAL HYPERTENSION; HTN, family Hx of cardiovascular disease TECHNIQUE: Carotid duplex ultrasound examination. Indirect Doppler criteria was utilized. FINDINGS: EXAM MEASUREMENTS: RIGHT: Peak Systolic Velocity (PSV) cm/sec ----- Right CCA: 79.3 ----- Right ICA: 92.4 ----- Right ECA: 124.4 ICA/CCA ratio: 1.2 RIGHT: End Diastole cm/sec ----- Right CCA: 32.8 ----- Right ICA: 34.3 ----- Right ECA: 27.0 LEFT: Peak Systolic Velocity (PSV) cm/sec ----- Left CCA: 100.0 ----- Left ICA: 98.4 ----- Left ECA: 98.4 ICA/CCA ratio: 1.0 LEFT: End Diastole cm/sec ----- Left CCA: 35.4 ----- Left ICA: 41.8 ----- Left ECA: 41.8 VERTEBRALS (direction of flow): Right Vertebral: Antegrade Left Vertebral: Antegrade Rhythm: Normal AUTOMATIC VULCANIZING OPERATOR NOTES: No elevated velocities IMPRESSION: No evidence for hemodynamically significant stenosis. Criteria for Assigning % of Stenosis / Diameter reduction (Estimation based on the indirect measurements of the internal carotid artery velocities (ICA PSV). 1. Normal (no stenosis)=ICA PSV < 125 cm/s: ratio < 2.0: ICA EDV<40 cm/s. 2. Less than 50% stenosis=ICA PSV < 125 cm/s: ratio < 2.0: ICA EDV<40 cm/s. 3. 50 to 69% stenosis=ICA PSV of 125 to 230 cm/s: ration 2.0 ? 4.0: ICA EDV 40-100 cm/s. 4. Greater than 70% stenosis to near occlusion= ICA PSV > 230 cm/s: ratio > 4.0: ICA EDV > 100 cm/s. 5. Near occlusion= ICA PSV velocities may be low or undetectable: variable ratio and ICA EDV. 6. Total occlusion=unable to detect flow.
== END | disposition home or self-care (01) ==
LOC: RADUSWWP 16:12
PROVIDERS: ATTEND Internal Medicine Interventional Cardiology
DX: I10 Essential (primary) hypertension (principal); Z82.49 Family history of ischemic heart disease and other diseases of the circulatory system
CPT/HCPCS: 93880

== ENCOUNTER → 2023-10-17 | Outpatient (CLI) | payer MEDICAID ==
--- NOTE | 2023-10-17 09:31 | CT ---
EXAMINATION TYPE: CT brain wo con DATE OF EXAM: 10/17/2023 HISTORY: triple vision. Family history of ischemic heart disease CT DLP: 1121 mGycm. Automated Exposure Control for Dose Reduction was Utilized. TECHNIQUE: CT scan of the head is performed without contrast. COMPARISON: None. FINDINGS: There is no acute intracranial hemorrhage or midline shift identified. Ventricles and sul ci within normal limits in size for patient's age. Vivar-white matter differentiation is maintained. The globes are intact and the visualized sinuses are clear. IMPRESSION: No acute intracranial hemorrhage or midline shift. Unremarkable study.
== END | disposition home or self-care (01) ==
LOC: RADCTMAIN 09:09
PROVIDERS: ATTEND Family Medicine
DX: Z82.49 Family history of ischemic heart disease and other diseases of the circulatory system (principal)
CPT/HCPCS: 70450

== ENCOUNTER 2024-02-09 05:43 | Day surgery (SDC) | payer MEDICAID ==
[2024-02-04 12:09] VITALS: BMI 49.0
[2024-02-09] MEDS ORDERED: ONDANSETRON 4 MG/2 ML VIAL ONE (06:28)
[2024-02-09] MEDS: ACETAMINOPHEN TAB 500 MG TAB PO PRN (06:30)
[2024-02-09] MEDS ORDERED: droPERidol 5 MG/2 ML VIAL IVP PRN (06:32)
[2024-02-09] MEDS: LACTATED RINGERS 1,000 ML IV SCH (06:35)
[2024-02-09] MEDS: LIDOCAINE 1% (10MG/ML) FOR IV START INTRADERMA PRN (06:35)
[2024-02-09] MEDS: DEXAMETHASONE SOD PHOSPHATE 4 MG/ML 1 ML VIAL IV ONE (06:45)
[2024-02-09] MEDS: ONDANSETRON 4 MG/2 ML VIAL IVP ONE (06:45)
[2024-02-09] MEDS: MIDAZOLAM 2 MG/2 ML VIAL IVP ONE (07:01)
[2024-02-09] MEDS: HEPARIN SODIUM,PORCINE 5,000 UNIT/ML 1 ML VIAL SQ PRN (07:15)
--- NOTE | 2024-02-09 07:20 | P.ANPRN ---
Procedure Note - Anesthesia - Nerve Block Performed Bilateral Rectus Abdominis Single Time Out Performed: Yes Date of Procedure: 02/09/24 Procedure Start Time: : Procedure Stop Time: 07:08 Location of Patient: PreOp Indication: Acute Post-Operative Pain, Analgesia, Requested by Surgeon Sedation Type: Sedate with meaningful contact maintained Preparation: Sterile Prep Position: Supine Catheter: None Needle Types: Pajunk Needle Gauge: 21 Ultrasound used to visualize needle placement: Yes Ultrasound used to observe medication spread: Yes Injectate: 0.5% Ropivacaine (see comment for volume) (Ropiv 15 ml +decadron 4mg---Each side) Blood Aspirated: No Pain Paresthesia on Injection Noted: No Resistance on Injection: Normal Image Stored and Saved: Yes Events: Uneventful and Well Tolerated
[2024-02-09] MEDS ORDERED: ePHEDrine 50 MG/ML 1 ML VIAL ONE (07:22)
[2024-02-09] MEDS ORDERED: DEXAMETHASONE SOD PHOSPHATE 4 MG/ML 1 ML VIAL ONE (07:22)
[2024-02-09] MEDS ORDERED: fentaNYL (PF) 50 MCG/ML 2 ML AMP ONE (07:22)
[2024-02-09] MEDS ORDERED: HYDROmorphone (PF) 1 MG/ML ONE (07:22)
[2024-02-09] MEDS ORDERED: SUGAMMADEX SODIUM 200 MG/2 ML SDV IV ONE (07:22)
[2024-02-09] MEDS ORDERED: PROPOFOL 10 MG/ML 20 ML VIAL IV ONE (07:22)
[2024-02-09] MEDS ORDERED: LIDOCAINE 4% LTA KIT (4 ML) TOPICAL ONE (07:22)
[2024-02-09] MEDS ORDERED: SUCCINYLCHOLINE CHLORIDE 200 MG/10 ML VIAL IV ONE (07:22)
[2024-02-09] MEDS ORDERED: ROCURONIUM 10 MG/ML (5 ML VIAL) IV ONE (07:22)
[2024-02-09] MEDS ORDERED: KETOROLAC 15 MG/ML 1 ML VIAL ONE (07:22)
[2024-02-09] MEDS ORDERED: LIDOCAINE 1% INJ 10MG/ML (20 ML MDV) ONE (07:22)
[2024-02-09] MEDS ORDERED: ROPIVACAINE 5 MG/ML 30 ML VIAL ONE (07:22)
--- NOTE | 2024-02-09 07:26 | P.GSHP ---
History of Present Illness H&P Date: 02/09/24 Chief Complaint: Umbilical hernia 53-year-old female here today for elective repair of abdominal wall hernia. Patient has been seen in the office on 2 separate occasions. Patient with history of previous CAT scan showing both ventral and umbilical hernia. Umbilical hernia containing bowel loops. Largest hernia defect 2.5 cm. This has been enlarging however since that CAT scan. Patient has had fluctuating weight since her initial evaluation. Patient also initially was smoking. She has stopped smoking. Unfortunately her weight has not changed significantly. Past Medical History Past Medical History: Asthma, COPD, Hypertension, Osteoarthritis (OA), Sleep Apnea/CPAP/BIPAP Additional Past Medical History / Comment(s): uses CPAP machine History of Any Multi-Drug Resistant Organisms: None Reported Past Surgical History: Adenoidectomy, Section, Cholecystectomy, Orthopedic Surgery, Tonsillectomy Additional Past Surgical History / Comment(s): rt knee arthroscopy, trigger thumb, septoplasty Past Anesthesia/Blood Transfusion Reactions: No Reported Reaction Past Psychological History: No Psychological Hx Reported Smoking Status: Former smoker Past Alcohol Use History: Rare Additional Past Alcohol Use History / Comment(s): quit smoking 2020 Past Drug Use History: None Reported - Past Family History Father Family Medical History: Diabetes Mellitus Additional Family Medical History / Comment(s): "heart problems" Medications and Allergies Home Medications Medication Instructions Recorded Confirmed Type Calcium/Magnes 1 tab PO DAILY 11/07/20 02/04/24 History Vitamin B Complex 1 cap PO DAILY 11/07/20 02/04/24 History Albuterol Inhaler [Ventolin Hfa 1 - 2 puff INHALATION Q6H PRN 02/04/24 02/04/24 History Inhaler] Ascorbic Acid [Vitamin C] 500 mg PO DAILY 02/04/24 02/04/24 History Cholecalciferol (Vitamin D3) 125 mcg PO DAILY 02/04/24 02/04/24 History [Vitamin D3 (125 MCG = 5,000 IU)] Folic Acid 0.8 mg PO DAILY 02/04/24 02/04/24 History L.acidoph,Paracasei, B.lactis 1 each PO DAILY 02/04/24 02/04/24 History [Probiotic] Losartan-Hctz 50-12.5 mg [Hyzaar 1 tab PO DAILY 02/04/24 02/04/24 History 50-12.5] Lysine [l-Lysine] 600 mg PO DAILY 02/04/24 02/04/24 History Meloxicam 7.5 mg PO DAILY 02/04/24 02/04/24 History Mometasone/Formoterol [Dulera 100 1 puff INHALATION DIRECTED 02/04/24 02/04/24 History Mcg-5 Mcg Inhaler] Montelukast [Singulair] 10 mg PO DAILY 02/04/24 02/04/24 History Allergies Allergy/AdvReac Type Severity Reaction Status Date / Time acetaminophen AdvReac "don't Verified 02/09/24 06:13 [From Tylenol-Codeine #3] like the feeling, loopy" codeine AdvReac "don't Verified 02/09/24 06:13 [From Tylenol-Codeine #3] like the feeling, loopy" Surgical - Exam Physical exam: General: Well-developed, well-nourished HEENT: Normocephalic, sclerae nonicteric Abdomen: Nontender, nondistended, incarcerated umbilical and ventral hernia Extremities: No edema Neuro: Alert and oriented Results - Labs 02/09/24 06:35 Diabetes panel 02/09/24 Range/Units 06:35 Potassium 3.9 (3.5-5.1) mmol/L Pituitary panel 02/09/24 Range/Units 06:35 Potassium 3.9 (3.5-5.1) mmol/L Adrenal panel 02/09/24 Range/Units 06:35 Potassium 3.9 (3.5-5.1) mmol/L Assessment and Plan (1) Umbilical hernia Narrative/Plan: 53-year-old female with incarcerated umbilical and ventral hernia. Will proceed with open repair incarcerated umbilical and ventral hernia with mesh at this time. Risks of bleeding, infection, recurrence, bladder and bowel injury, numbness, nerve injury were discussed with the patient. The patient understands and wishes to proceed. Current Visit: Yes Status: Acute Code(s): K42.9 - UMBILICAL HERNIA WITHOUT OBSTRUCTION OR GANGRENE OMED Code(s): 316943750
[2024-02-09] MEDS: BUPIVACAINE (PF) 0.25% 30 ML VIAL SQ ONE (07:28)
[2024-02-09] MEDS: LACTATED RINGERS 1,000 ML IV ONE ×2 (07:28→08:13)
[2024-02-09] MEDS: ceFAZolin 3 GM in SODIUM CHLORIDE 0.9% 100 ML IVPB PRN (07:28)
[2024-02-09] MEDS ORDERED: NALOXONE 0.4 MG/ML 1 ML VIAL IV PRN (09:43)
[2024-02-09] MEDS ORDERED: HYDROmorphone 0.5 MG/0.5 ML SYRINGE IVP PRN (09:44)
--- NOTE | 2024-02-09 09:53 | P.OP ---
Date of Procedure: 02/09/24 Procedure(s) Performed: PREOPERATIVE DIAGNOSIS: Umbilical and ventral incarcerated hernias POSTOPERATIVE DIAGNOSIS: Same PROCEDURE: Open repair incarcerated umbilical and ventral hernia with mesh SURGEON: Dr. Stewart ANESTHESIA: General OPERATIVE PROCEDURE DETAILS: Patient placed on the operating table in the supine position. Abdomen was prepped and draped in usual sterile fashion. A vertical incision was then made superior to the umbilicus extending inferiorly beneath the umbilicus. Dissection through the subcutaneous tissues took place using electrocautery. The patient had 2 defects. One was at the base of the umbilicus. This was the larger of the 2 defects. This measured about 3 x 3 cm. A second defect was present 2 cm superior to that and this measured about 1.5 to 2 cm in diameter. The bridge of fascia between the 2 was fairly thin and weak and this was divided. We now had a single defect measuring 6.5 x 4 cm. A portion of the hernia sacs and pre-peroneal fat was excised. There were no adhesions beneath the peritoneum. We were unable to place the mesh in the preperitoneal space given the very thin nature of the abdominal wall and peritoneum. An 8 x 12 cm Ventrio mesh was utilized oriented vertically. The mesh was then sutured to the fascia using trans-fascial 0 Ethibond sutures circumferentially. Following that the midline fascia was reapproximated vertically using interrupted 0 Ethibond mattress sutures. The folding edge was sutured down using interrupted 0 Ethibond sutures as well. A drain was placed anterior to the fascial closure exiting in the right lower quadrant. Irrigation took place. No bleeding was seen. The subcutaneous tissues were closed using 2 oh and 3-0 Vicryl sutures. The skin was closed using kai. Ssterile dressings were applied. HERNIA CHARACTERISTICS: Length: 6.5 cm Width: 4 cm Type: Incarcerated ventral and umbilical TYPE OF MESH USED: Ventrio 8 x 12 cm LOCATION OF MESH: Underlay FIXATION: 0 Ethibond PREOPERATIVE DISCUSSION ON SMOKING CESSASTION: Yes PREOPERATIVE DISCUSSION ON MORBID OBESITY: Yes PREOPERATIVE DISCUSSION ON APPROPRIATE USE OF NARCOTIC USE: Yes PREOPERATIVE EDUCATION: Multi Modal, Smoking Cessation and Weight Loss with BMI over 35. DISPOSITION: Stable to recovery room
[2024-02-09] MEDS: HYDROmorphone 0.5 MG/0.5 ML SYRINGE IVP PRN (10:09)
[2024-02-09] MEDS: KETOROLAC 15 MG/ML 1 ML VIAL IVP SCH (14:50)
[2024-02-09] MEDS ORDERED: IPRATROPIUM-ALBUTEROL 3 ML NEB INHALATION PRN (15:39)
[2024-02-09] MEDS: HEPARIN SODIUM,PORCINE 5,000 UNIT/ML 1 ML VIAL SQ SCH (16:10)
[2024-02-09] MEDS: HYDROmorphone 1 MG/ML 1 ML SYRINGE IVP PRN (17:44)
[2024-02-09] MEDS: D5-0.45% NACL WITH KCL 20MEQ/L 1,000 ML IV SCH (17:44)
[2024-02-09] MEDS: ONDANSETRON 4 MG/2 ML VIAL IVP PRN (19:09)
[2024-02-09] MEDS: IPRATROPIUM-ALBUTEROL 3 ML NEB INHALATION SCH (20:12)
[2024-02-09] MEDS: SYMBICORT 80-4.5 MCG INHALER INHALATION SCH (20:12)
[2024-02-09] MEDS: DOCUSATE 100 MG CAP PO SCH (20:26)
[2024-02-09] MEDS: FAMOTIDINE 20 MG TAB PO SCH (20:26)
--- NOTE | 2024-02-10 02:11 | CONS ---
CONSULTATION REASON FOR CONSULTATION: Advice regarding asthma and COPD, requested by surgery. HISTORY OF PRESENT ILLNESS: This is a 53-year-old woman with a past medical history of multiple medical problems including asthma, COPD, hypertension, underwent open repair of incarcerated umbilical and ventral hernia with mesh. The patient tolerated the procedure well. There is no history of any fever, rigors, or chills. The patient is rather drowsy and postop at this time. PAST MEDICAL HISTORY: Reviewed include asthma, COPD, hypertension, rest of the history and rest of the chart is also reviewed. HOME MEDICATIONS: Reviewed include albuterol, doses and rest of medications reviewed. ALLERGIES: Tylenol, codeine. FAMILY HISTORY: History of diabetes and heart problems. SOCIAL HISTORY: Previous history of smoking. REVIEW OF SYSTEMS: A 14-point review is negative except as mentioned earlier. PHYSICAL EXAMINATION: VITAL SIGNS: Pulse 80, blood pressure 137/82, respirations 18. HEENT: Conjunctivae normal. NECK: No jugular venous distention. CARDIOVASCULAR: S1, S2. RESPIRATIONS: Diminished at the bases, few scattered rhonchi. ABDOMEN: Soft, status post surgery. LEGS: No edema. No swelling. NERVOUS SYSTEM: No focal deficit. SKIN: No ulcer, rash, bleeding. JOINTS: No active deforming arthropathy. LABORATORY DATA: Potassium 3.9. ASSESSMENT: 1. Status post open repair of incarcerated umbilical and ventral hernia with mesh. 2. COPD, asthma. 3. Hypertension. 4. DJD. 5. History of sleep apnea, uses CPAP at home. 6. History of cholecystectomy. 7. Remote history of nicotine dependence. RECOMMENDATIONS AND DISCUSSION: This 53-year-old woman presented after surgery. At this time, I recommended to resume the home medication, bronchodilators, incentive spirometry, DVT prophylaxis, GI prophylaxis, otherwise also recommend CPAP at home. I would recommend the patient to follow up closely with primary physician after discharge. MMODL / IJN: [id number] /
[2024-02-10] MEDS: CHOLECALCIFEROL 125 MCG (5000 IU) TABLET PO SCH (08:56)
[2024-02-10] MEDS: MONTELUKAST 10 MG TAB PO SCH (08:56)
[2024-02-10] MEDS: FOLIC ACID 1 MG TAB PO SCH (08:57)
[2024-02-10] MEDS: traMADol 50 MG TAB PO PRN (08:57)
[2024-02-10] MEDS: FOLIC ACID-VIT B COMPLEX-VIT C 1 CAP PO SCH (08:57)
[2024-02-10] MEDS: LOSARTAN-HCTZ 50-12.5 MG 1 EACH TAB PO SCH (08:57)
--- NOTE | 2024-02-10 14:35 | P.PN ---
Subjective Progress Note Date: 02/10/24 This is a pleasant 53-year-old female who was recently admitted under general surgery services Dr. Stewart and is status post open repair of incarcerated umbilical and ventral hernia with mesh. Patient reports to doing well although having some abdominal discomfort which is tolerated on current pain management. Patient has been up and walking noted to be slightly short of breath with exertion and will obtain a chest x-ray. Incentive spirometer ordered and encouraged the patient to use at least 10 times every hour while awake. Home medications reviewed and resumed as appropriate. Review of systems: Constitutional: No reports of fatigue, fever, or chills Cardiovascular: No reports of chest pain or palpitations Respiratory: No reports of shortness of breath or cough GI: No reports of nausea, no reports of vomiting, no diarrhea, reports not much of an appetite : No reports of dysuria or retention Neurovascular: No reports of generalized weakness All medications have been reviewed Active Medications Acetaminophen (Acetaminophen Tab 325 Mg Tab) 650 mg PO Q6HR PRN PRN Reason: Mild Pain or Fever >= 100.5 Stop: 03/10/24 09:45 Albuterol/Ipratropium (Ipratropium-Albuterol 3 Ml Neb) 3 ml INHALATION RT-TID [facility] Last Admin: 02/10/24 11:54 Dose: 3 ml Albuterol/Ipratropium (Ipratropium-Albuterol 3 Ml Neb) 3 ml INHALATION RT-TID PRN PRN Reason: Shortness Of Breath Or Wheezing Budesonide/Formoterol Fumarate (Symbicort 80-4.5 Mcg Inhaler) 2 puff INHALATION RT-BID [facility] Last Admin: 02/10/24 08:38 Dose: 2 puff Cholecalciferol (Cholecalciferol 125 Mcg (5000 Iu) Tablet) 125 mcg PO DAILY [facility] Last Admin: 02/10/24 08:56 Dose: 125 mcg Docusate Sodium (Docusate 100 Mg Cap) 100 mg PO BID [facility] Stop: 03/10/24 21:01 Last Admin: 02/10/24 08:56 Dose: 100 mg Famotidine (Famotidine 20 Mg Tab) 20 mg PO BID [facility] Stop: 03/10/24 21:01 Last Admin: 02/10/24 08:57 Dose: 20 mg Folic Acid (Folic Acid 1 Mg Tab) 1 mg PO DAILY [facility] Last Admin: 02/10/24 08:57 Dose: 1 mg HCTZ/Losartan Potassium (Losartan-Hctz 50-12.5 Mg 1 Each Tab) 1 each PO DAILY [facility] Last Admin: 02/10/24 08:57 Dose: 1 each Heparin Sodium (Porcine) (Heparin Sodium,Porcine 5,000 Unit/Ml 1 Ml Vial) 5,000 unit SQ Q8HR [facility] Stop: 03/10/24 16:01 Last Admin: 02/10/24 08:58 Dose: 5,000 unit Hydromorphone HCl (Hydromorphone 0.5 Mg/0.5 Ml Syringe) 0.5 mg IVP Q3HR PRN PRN Reason: Moderate Pain (Scale 4 to 6) Stop: 03/10/24 09:45 Hydromorphone HCl (Hydromorphone 1 Mg/Ml 1 Ml Syringe) 1 mg IVP Q4HR PRN PRN Reason: Severe Pain (Scale 7 to 10) Stop: 03/10/24 09:45 Last Admin: 02/09/24 17:44 Dose: 1 mg Lactated Ringer's (Lactated Ringers) 1,000 mls @ 20 mls/hr IV .Q24H [facility] Stop: 03/10/24 06:33 Last Admin: 02/09/24 23:59 Dose: Not Given Potassium Chloride/Dextrose/Sod Cl (D5%-1/2ns-Kcl 20 Meq/L Iv Solution) 1,000 mls @ 75 mls/hr IV .[id number] [facility] Stop: 03/10/24 15:01 Last Admin: 02/10/24 06:03 Dose: 75 mls/hr Ketorolac Tromethamine (Ketorolac 15 Mg/Ml 1 Ml Vial) 15 mg IVP Q6HR [facility] Stop: 02/11/24 06:01 Last Admin: 02/10/24 11:37 Dose: 15 mg Lidocaine HCl (Lidocaine 1% (10mg/Ml) For Iv Start) 0.1 ml INTRADERMA PER PROTOCOL PRN PRN Reason: IV Start Stop: 03/10/24 06:33 Last Admin: 02/09/24 06:35 Dose: 0.1 ml Montelukast Sodium (Montelukast 10 Mg Tab) 10 mg PO DAILY [facility] Last Admin: 02/10/24 08:56 Dose: 10 mg Multivit/Ca Carb/B Cmplx/FA/Prenat (Folic Acid-Vit B Complex-Vit C 1 Cap) 1 each PO DAILY [facility] Last Admin: 02/10/24 08:57 Dose: 1 each Naloxone HCl (Naloxone 0.4 Mg/Ml 1 Ml Vial) 0.2 mg IV Q2M PRN PRN Reason: Opioid Reversal Stop: 03/10/24 09:44 Ondansetron HCl (Ondansetron 4 Mg/2 Ml Vial) 4 mg IVP Q6HR PRN PRN Reason: Nausea And Vomiting Stop: 03/10/24 09:45 Last Admin: 02/09/24 19:09 Dose: 4 mg Tramadol HCl (Tramadol 50 Mg Tab) 50 mg PO Q6H PRN PRN Reason: Moderate Pain (Scale 4 to 6) Stop: 03/10/24 09:45 Last Admin: 02/10/24 08:57 Dose: 50 mg PHYSICAL EXAMINATION: GENERAL: The patient is alert and oriented x4, Well developed, well nourished. Morbidly obese HEENT: Pupils are round and equally reacting to light. EOMI. no scleral icterus. No conjunctival pallor. Normocephalic, atraumatic. No pharyngeal erythema. No thyromegaly. CARDIOVASCULAR: S1 and S2 muffled PULMONARY: diminished breath sounds bilaterally with no wheezing, coarse scattered rhonchi noted. ABDOMEN: soft. Mildly tender on exam. obese. non-distended, normoactive bowel sounds. No palpable organomegaly. MUSCULOSKELETAL: No joint swelling or deformity. EXTREMITIES: No cyanosis, clubbing, or pedal edema. Chronic lower extremity edema NEUROLOGICAL: Gross neurological examination did not reveal any focal deficits. Diffuse weakness SKIN: No rashes. Assessment: Status post repair of incarcerated umbilical and ventral hernia with mesh, postop day 1 COPD/asthma history, stable Hypertension history Degenerative joint disease history History of sleep apnea, uses a CPAP at home History of cholecystectomy Morbid obesity with a BMI of 48.3 Former smoker GI prophylaxis DVT prophylaxis Full code Plan: Recommend to continue with current medications and management per general surgery services Diet is being advanced per surgery and reports to tolerating thus far. Encourage small frequent meals. Continue with pain management per general surgery Patient did have some noted shortness of breath with exertion will obtain a chest x-ray and encouraged incentive spirometer use at least 10 times every hour while awake. Continue with DuoNeb treatments as needed as well as scheduled along with home medications including Symbicort and albuterol as needed. Recommend follow-up labs to monitor CBC, CMP, magnesium in the a.m. Encouraged to increase activity as tolerated and encouraged frequent walking in the halls We will continue to follow general surgery during hospitalization. Thank you kindly for this consultation. The impression and plan of care has been dictated by Waleska Gipson, nurse practitioner as directed. Dr. Dylan MD I have performed a history and examination and MDM of this patient, discussed the same with the dictator, and agree with the dictator's assessment and plan as written ,documented as a scribe. Based on total visit time, I have performed more than 50% of the visit. Any additional findings or plans will be noted. Objective - Vital Signs Vital signs: Vital Signs Temp 98.1 F 02/10/24 12:25 Pulse 66 02/10/24 12:25 Resp 16 02/10/24 12:25 BP 101/64 02/10/24 12:25 Pulse Ox 95 02/10/24 12:25 FiO2 Intake & Output 02/09/24 02/10/24 02/10/24 18:59 06:59 18:59 Intake Total 2500 1500 Output Total 50 Balance 2450 1500 Weight 119.7 kg Intake: IV 2500 Intake, IV Titration 900 Amount D5-0.45% NaCl with KCl 900 20Meq/l 1,000 ml @ 75 mls /hr IV .[id number] [facility] Rx#: [id number] Oral 600 Output: Estimated Blood Loss 50 Other: # Voids 1 3 1 - Labs CBC & Chem 7: 02/09/24 06:35
--- NOTE | 2024-02-10 14:45 | XR ---
EXAMINATION TYPE: XR chest 1V portable DATE OF EXAM: 02/10/2024 2:08 PM CLINICAL INDICATION:Female, 53 years old with history of shortness of breath; PH[facility] COMPARISON: Chest radiographs from 10/31/2020, 02/07/2018 TECHNIQUE: XR chest 1V portable Frontal view of the chest. FINDINGS: Lungs/Pleura: Low lung volumes are present. There is no evidence of pleural effusion, focal consolida tion, or pneumothorax. Pulmonary vascularity: Unremarkable. Heart/mediastinum: Cardiomediastinal silhouette is unremarkable. Musculoskeletal: No acute osseous pathology. IMPRESSION: Low lung volumes with a generalized hazy appearance which could represent atelectasis versus pulmonar y edema correlate with serum BNP.
--- NOTE | 2024-02-10 15:20 | P.PN ---
Subjective Progress Note Date: 02/10/24 Principal diagnosis: Incarcerated hernia Patient did fairly well overnight. Mild to moderate soreness. Still having some issues with getting out of bed on her own. Patient does live by herself. Tolerating liquids. Mild nausea. Mild bloating. Objective - Vital Signs Vital signs: Vital Signs Temp 98.1 F 02/10/24 12:25 Pulse 66 02/10/24 12:25 Resp 16 02/10/24 12:25 BP 101/64 02/10/24 12:25 Pulse Ox 95 02/10/24 12:25 FiO2 Intake & Output 02/09/24 02/10/24 02/10/24 18:59 06:59 18:59 Intake Total 2500 1500 Output Total 50 Balance 2450 1500 Weight 119.7 kg Intake: IV 2500 Intake, IV Titration 900 Amount D5-0.45% NaCl with KCl 900 20Meq/l 1,000 ml @ 75 mls /hr IV .[id number] [facility] Rx#: [id number] Oral 600 Output: Estimated Blood Loss 50 Other: # Voids 1 3 1 - Exam Abdomen: Soft n, nondistended, mild tenderness, dressing clean and dry, drain serosanguineous - Labs CBC & Chem 7: 02/09/24 06:35 Assessment and Plan (1) Umbilical hernia Narrative/Plan: Patient doing fairly well at this time. Continue ambulation. Monitor pain complaints. Possible discharge later today or tomorrow. Current Visit: Yes Status: Acute Code(s): K42.9 - UMBILICAL HERNIA WITHOUT OBSTRUCTION OR GANGRENE SNOMED Code(s): 926871969
[2024-02-11 10:21] LABS: Basophils # (A) 0.05 X 10*3/uL (0.00-0.10); Basophils % (A) 0.6 %; Eosinophils # (A) 0.07 X 10*3/uL (0.04-0.35); Eosinophils % (A) 0.8 %; HCT 39.4 % (37.2-46.3); HGB 12.3 g/dL (12.0-15.0); Lymphocytes # (A) 2.59 X 10*3/uL (0.90-5.00); Lymphocytes % (A) 31.4 %; MCH 29.1 pg (27.0-32.0); MCHC 31.2 g/dL (32.0-37.0); MCV 93.1 FL (80.0-97.0); Mean Platelet Volume 12.3 FL (9.5-12.2); Monocytes # (A) 0.73 X 10*3/uL (0.20-1.00); Monocytes % (A) 8.8 %; NRBC Per 100 WBC 0 X 10*3/uL (0.00-0.01); Neutrophils # (A) 4.77 X 10*3/uL (1.80-7.70); Neutrophils % (A) 57.9 %; Platelet Count 174 X 10*3/uL (140-440); RBC 4.23 X 10*6/uL (4.10-5.20); RDW 14.4 % (11.5-14.5); WBC 8.25 X 10*3/uL (4.50-10.00)
[2024-02-11 10:46] LABS: ALT 32 U/L (8-44); AST 24 U/L (13-35); Albumin 3.8 g/dL (3.8-4.9); Albumin/Globulin Ratio 1.36 Ratio (1.60-3.17); Alkaline Phosphatase 90 U/L (41-126); BUN/Creat Ratio 17.25 Ratio (12.00-20.00); Blood Urea Nitrogen 13.8 mg/dL (9.0-27.0); Calcium 9.2 mg/dL (8.7-10.3); Carbon Dioxide 26.6 mmol/L (21.6-31.8); Chloride 105 mmol/L (96-109); Globulin 2.8 g/dL (1.6-3.3); Glucose 92 mg/dL (70-110); Magnesium 2.2 mg/dL (1.5-2.4); Potassium 4.7 mmol/L (3.5-5.5); Sodium 142 mmol/L (135-145); Total Bilirubin 0.3 mg/dL (0.3-1.2); Total Protein 6.6 g/dL (6.2-8.2)
--- NOTE | 2024-02-11 11:52 | P.DS ---
Providers Expected date of discharge: 02/11/24 Attending physician: Carlos Stewart Consults: 02/09/24 09:44 Consult Physician Routine Consulting Provider: Chase Richardson Consult Reason/Comments: Medical management Do you want consulting provider notified?: Yes Primary care physician: Tanner Lynn - Discharge Diagnosis(es) (1) Umbilical hernia Patient admitted 2 days ago after elective repair of a large incarcerated incisional hernia. Patient was having some abdominal discomfort yesterday leading to observation 1 more day. She lives at home alone. She has done well since yesterday. Her pain is improved today. Still difficult to get in and out of bed. She would like to go home. Will plan discharge. Prescription for Ultram and Motrin provided. Follow-up 1 week. teaching care provided. Current Visit: Yes Status: Acute Plan - Discharge Summary Discharge Rx Participant: No New Discharge Prescriptions: New traMADol HCl [Ultram] 50 mg PO Q6H PRN #10 tab PRN Reason: Pain Ibuprofen [Motrin] 600 mg PO Q6HR PRN #120 tab PRN Reason: Analgesia No Action Vitamin B Complex 1 cap PO DAILY Calcium/Magnes 1 tab PO DAILY Cholecalciferol (Vitamin D3) [Vitamin D3 (125 MCG = 5,000 IU)] 125 mcg PO DAILY L.acidoph,Paracasei, B.lactis [Probiotic] 1 each PO DAILY Lysine [l-Lysine] 600 mg PO DAILY Albuterol Inhaler [Ventolin Hfa Inhaler] 1 - 2 puff INHALATION Q6H PRN PRN Reason: Shortness Of Breath Montelukast [Singulair] 10 mg PO DAILY Meloxicam 7.5 mg PO DAILY Ascorbic Acid [Vitamin C] 500 mg PO DAILY Folic Acid 0.8 mg PO DAILY Mometasone/Formoterol [Dulera 100 Mcg-5 Mcg Inhaler] 1 puff INHALATION DIRECTED Losartan-Hctz 50-12.5 mg [Hyzaar 50-12.5] 1 tab PO DAILY Discharge Medication List Calcium/Magnes 1 tab PO DAILY 11/07/20 [History] Vitamin B Complex 1 cap PO DAILY 11/07/20 [History] Albuterol Inhaler [Ventolin Hfa Inhaler] 1 - 2 puff INHALATION Q6H PRN 02/04/24 [History] Ascorbic Acid [Vitamin C] 500 mg PO DAILY 02/04/24 [History] Cholecalciferol (Vitamin D3) [Vitamin D3 (125 MCG = 5,000 IU)] 125 mcg PO DAILY 02/04/24 [History] Folic Acid 0.8 mg PO DAILY 02/04/24 [History] L.acidoph,Paracasei, B.lactis [Probiotic] 1 each PO DAILY 02/04/24 [History] Losartan-Hctz 50-12.5 mg [Hyzaar 50-12.5] 1 tab PO DAILY 02/04/24 [History] Lysine [l-Lysine] 600 mg PO DAILY 02/04/24 [History] Meloxicam 7.5 mg PO DAILY 02/04/24 [History] Mometasone/Formoterol [Dulera 100 Mcg-5 Mcg Inhaler] 1 puff INHALATION DIRECTED 02/04/24 [History] Montelukast [Singulair] 10 mg PO DAILY 02/04/24 [History] Ibuprofen [Motrin] 600 mg PO Q6HR PRN #120 tab 02/09/24 [Rx] traMADol HCl [Ultram] 50 mg PO Q6H PRN #10 tab 02/09/24 [Rx] Follow up Appointment(s)/Referral(s): Carlos Stewart MD [Medical Doctor] - 1 Week
[2024-02-11 12:44] VITALS: PULSE 81
[2024-02-11 12:46] VITALS: BP 117/81; RESP 18; TEMP 97.6
[2024-02-11] MEDS: ACETAMINOPHEN TAB 325 MG TAB PO PRN (12:50)
== END 2024-02-11 14:28 | disposition home or self-care (01) ==
LOC: OR 05:43 → 5NMEDONC 14:04 → OR 02-11 14:28
PROVIDERS: ATTEND Surgery
DX: K43.6 Other and unspecified ventral hernia with obstruction, without gangrene (principal); M19.90 Unspecified osteoarthritis, unspecified site; J44.89 Other specified chronic obstructive pulmonary disease; I10 Essential (primary) hypertension; G89.18 Other acute postprocedural pain; G47.30 Sleep apnea, unspecified; E66.01 Morbid (severe) obesity due to excess calories; Z68.42 Body mass index [BMI] 45.0-49.9, adult; Z79.1 Long term (current) use of non-steroidal anti-inflammatories (NSAID); Z79.51 Long term (current) use of inhaled steroids; Z79.899 Other long term (current) drug therapy; Z87.891 Personal history of nicotine dependence; Z88.5 Allergy status to narcotic agent; Z88.6 Allergy status to analgesic agent; Z90.49 Acquired absence of other specified parts of digestive tract
CPT/HCPCS: 94640 ×4; 64488; 80053; 83735; 84132; 85025; 88302; 71045; 49592; C1781; J2250; J1644 ×3; J1100; J0690; J2405; J1170 ×2; J1885 ×3; J0665

== ENCOUNTER 2024-02-26 09:09 | Emergency (ER) | payer MEDICAID ==
--- NOTE | 2024-02-26 09:37 | ED ---
General Adult HPI - General Chief complaint: Extremity Problem,Nontraumatic Stated complaint: Post-op sterling. leg swelling Time Seen by Provider: 02/26/24 09:11 Source: patient Mode of arrival: ambulatory Limitations: no limitations - History of Present Illness Initial comments: Dictation was produced using [employer] dictation software. please excuse any grammatical, word or spelling errors. Chief Complaint: 53-year-old female presents to the emergency department for concerns of PE/DVT History of Present Illness: Patient is a 53-year-old female earlier this month she had hernia repair done by one of the surgeons here locally. Patient works as an OR nurse. She complained to her surgeon recently that she has been having some cramping in her upper or lower extremities. Patient's surgeon, Dr. Stewart contacted me states that he was going to send patient to the emergency department for concerns of PE DVT. Patient states that she does feel slightly short of breath. Her main issue is that she has got cramping in her anterior and lateral thighs bilaterally. She states that her feet swell slightly intermittently. Denies any chest pain. No history of blood clots. The ROS documented in this emergency department record has been reviewed and co nfirmed by me. Those systems with pertinent positive or negative responses have been documented in the HPI. All other systems are other negative and/or noncontributory. - Related Data Home Medications Medication Instructions Recorded Confirmed Calcium/Magnes 1 tab PO DAILY 11/07/20 02/04/24 Vitamin B Complex 1 cap PO DAILY 11/07/20 02/04/24 Albuterol Inhaler [Ventolin Hfa 1 - 2 puff INHALATION Q6H PRN 02/04/24 02/04/24 Inhaler] Ascorbic Acid [Vitamin C] 500 mg PO DAILY 02/04/24 02/04/24 Cholecalciferol (Vitamin D3) 125 mcg PO DAILY 02/04/24 02/04/24 [Vitamin D3 (125 MCG = 5,000 IU)] Folic Acid 0.8 mg PO DAILY 02/04/24 02/04/24 L.acidoph,Paracasei, B.lactis 1 each PO DAILY 02/04/24 02/04/24 [Probiotic] Losartan-Hctz 50-12.5 mg [Hyzaar 1 tab PO DAILY 02/04/24 02/04/24 50-12.5] Lysine [l-Lysine] 600 mg PO DAILY 02/04/24 02/04/24 Mometasone/Formoterol [Dulera 100 1 puff INHALATION DIRECTED 02/04/24 02/04/24 Mcg-5 Mcg Inhaler] Montelukast [Singulair] 10 mg PO DAILY 02/04/24 02/04/24 Previous Rx's Medication Instructions Recorded Ibuprofen [Motrin] 600 mg PO Q6HR PRN #120 tab 02/09/24 traMADol HCl [Ultram] 50 mg PO Q6H PRN #10 tab 02/09/24 Allergies Allergy/AdvReac Type Severity Reaction Status Date / Time acetaminophen AdvReac "don't Verified 02/26/24 09:14 [From Tylenol-Codeine #3] like the feeling, loopy" codeine AdvReac "don't Verified 02/26/24 09:14 [From Tylenol-Codeine #3] like the feeling, loopy" Review of Systems ROS Statement: Those systems with pertinent positive or pertinent negative responses have been documented in the HPI. ROS Other: All systems not noted in ROS Statement are negative. Past Medical History Past Medical History: Asthma, COPD, Hypertension, Osteoarthritis (OA), Sleep Apnea/CPAP/BIPAP Additional Past Medical History / Comment(s): uses CPAP machine History of Any Multi-Drug Resistant Organisms: None Reported Past Surgical History: Adenoidectomy, Section, Cholecystectomy, Hernia Repair, Orthopedic Surgery, Tonsillectomy Additional Past Surgical History / Comment(s): rt knee arthroscopy, trigger thumb, septoplasty Past Anesthesia/Blood Transfusion Reactions: No Reported Reaction Past Psychological History: No Psychological Hx Reported Smoking Status: Former smoker Past Alcohol Use History: Rare Past Drug Use History: None Reported - Past Family History Father Family Medical History: Diabetes Mellitus Additional Family Medical History / Comment(s): "heart problems" General Exam - General Exam Comments Initial Comments: PHYSICAL EXAM: General Impression: Alert and oriented x3, not in acute distress HEENT: Normocephalic atraumatic, extra-ocular movements intact, pupils equal and reactive to light bilaterally, mucous membranes moist. Cardiovascular: Heart regular rate and rhythm Chest: Able to complete full sentences, no retractions, no tachypnea Abdomen: abdomen soft, non-tender, non-distended, no organomegaly Musculoskeletal: Pulses present and equal in all extremities, no peripheral edema Motor: no focal deficits noted Neurological: CN II-XII grossly intact, no focal motor or sensory deficits noted Skin: Intact with no visualized rashes Psych: Normal affect and mood Limitations: no limitations Course Vital Signs 02/26/24 02/26/24 09:11 09:43 Temperature 98.5 F Pulse Rate 80 Respiratory 16 16 Rate Blood Pressure 146/83 136/90 O2 Sat by Pulse 95 98 Oximetry EKG Findings - EKG Comments: EKG Findings:: My EKG interpretation: Ventricular rate 74, sinus rhythm,. 183, QRS 101, QTc 4 6. No [place] prolongation, no QTC prolongation, no ST or T-wave changes noted. Overall, this EKG is unremarkable Medical Decision Making - Medical Decision Making Was pt. sent in by a medical professional or institution (, PA, HEAD OF SALES AND MARKETING, urgent care, hospital, or snf...) When possible be specific @ -No Did you speak to anyone other than the patient for history (EMS, parent, family, police, friend...)? What history was obtained from this source @ -No Did you review nursing and triage notes (agree or disagree)? Why? @ -I reviewed and agree with nursing and triage notes Were old charts reviewed (outside hosp., previous admission, EMS record, old EKG, old radiological studies, urgent care reports/EKG's, snf records)? Report findings @ -No old charts were reviewed Differential Diagnosis (chest pain, altered mental status, abdominal pain women, abdominal pain men, vaginal bleeding, musculoskeletal, weakness, fever, dyspnea, syncope, headache, dizziness, GI bleed, back pain, seizure, CVA, palpatations, mental health)? @ -Differential Dyspnea: Coronary syndrome, arrhythmia, tamponade, asthma, COPD, pulmonary embolism, pneumonia, pneumothorax, pulmonary effusion, anaphylaxis, diabetic ketoacidosis, flailed chest, pulmonary contusion, diaphragmatic rupture, anemia, hollie romuscular, this is not meant to be an all-inclusive list. EKG interpreted by me (3pts min.). @ -See above X-rays interpreted by me (1pt min.). @ -None done CT interpreted by me (1pt min.). @ -CT angiography shows no saddle PE. No other acute processes noted. U/S interpreted by me (1pt. min.). @ -Ultrasound lower extremity shows no DVT What testing was considered but not performed or refused? (CT, X-rays, U/S, labs)? Why? @ -None What meds were considered but not given or refused? Why? @ -None Did you discuss the management of the patient with other professionals (professionals i.e. , PA, HEAD OF SALES AND MARKETING, lab, RT, psych nurse, rn social services, e commerce web developer, teacher, tax compliance officer, case resource manager)? Give summary @ -Case discussed with Dr. Stewart Was smoking cessation discussed for >3mins.? @ -No Was critical care preformed (if so, how long)? @ -No Were there social determinants of health that impacted care today? How? (Homelessness, low income, unemployed, alcoholism, drug addiction, transportat ion, low edu. Level, literacy, decrease access to med. care, residential, rehab)? @ -No Was there de-escalation of care discussed even if they declined (Discuss DNR or withdrawal of care, Hospice)? DNR status @ -No What co-morbidities impacted this encounter? (DM, HTN, Smoking, COPD, CAD, Cancer, CVA, ARF, Chemo, Hep., AIDS, mental health diagnosis, sleep apnea, morbid obesity)? @ -None Was patient admitted / discharged? Hospital course, mention meds given and route, prescriptions, significant lab abnormalities, going to OR and other pertinent info. @ -53-year-old female presents emergency department for main complaint of cramping. There is concern that patient has PE/DVT and was sent here to the emergency department by general surgeon. Patient recently had hernia repair. Vital signs upon arrival are within acceptable limits. Patient well-appearing at the bedside. Labs are unremarkable. Imaging studies are negative. Patient discharged. Advised follow-up with primary care doctor Undiagnosed new problem with uncertain prognosis? @ -No Drug Therapy requiring intensive monitoring for toxicity (Heparin, Nitro, Insulin, Cardizem)? @ -No Were any procedures done? @ -No Diagnosis/symptom? Acute, or Chronic, or Acute on Chronic? Uncomplicated (without systemic symptoms) or Complicated (systemic symptoms)? @ -Leg cramping Side effects of treatment? @ -No Exacerbation, Progression, or Severe Exacerbation? @ -No Poses a threat to life or bodily function? How? (Chest pain, [place], AL, pneumonia, PE, COPD, DKA, ARF, appy, cholecystitis, CVA, Diverticulitis, Homicidal, Suicidal, threat to staff... and all critical care pts) @ -No - Lab Data Result diagrams: 02/26/24 09:41 02/26/24 09:41 Lab Results 02/26/24 02/26/24 02/26/24 Range/Units 09:41 09:41 09:41 WBC 8.4 (3.8-10.6) k/uL RBC 4.79 (3.80-5.40) m/uL Hgb 13.8 (11.4-16.0) gm/dL Hct 42.7 (34.0-46.0) % MCV 89.3 (80.0-100.0) fL MCH 28.8 (25.0-35.0) pg MCHC 32.3 (31.0-37.0) g/dL RDW 13.9 (11.5-15.5) % Plt Count 219 (150-450) k/uL MPV 8.2 Neutrophils % 64 % Lymphocytes % 22 % Monocytes % 7 % Eosinophils % 4 % Basophils % 1 % Neutrophils # 5.4 (1.3-7.7) k/uL Lymphocytes # 1.8 (1.0-4.8) k/uL Monocytes # 0.6 (0-1.0) k/uL Eosinophils # 0.3 (0-0.7) k/uL Basophils # 0.1 (0-0.2) k/uL PT 10.4 (10.0-12.5) sec INR 0.9 (<1.2) APTT 23.4 (22.0-30.0) sec D-Dimer 1.32 H (<0.60) mg/L FEU Sodium 138 (137-145) mmol/L Potassium 4.5 (3.5-5.1) mmol/L Chloride 110 H (98-107) mmol/L Carbon Dioxide 21 L (22-30) mmol/L Anion Gap 7 mmol/L BUN 20 H (7-17) mg/dL Creatinine 0.64 (0.52-1.04) mg/dL Est GFR (CKD-EPI)AfAm >90 (>60 ml/min/1.73 sqM) Est GFR (CKD-EPI)NonAf >90 (>60 ml/min/1.73 sqM) Glucose 105 H (74-99) mg/dL Calcium 9.3 (8.4-10.2) mg/dL Troponin I (0.000-0.034) ng/mL NT-Pro-B Natriuret Pep 172 pg/mL 02/26/24 Range/Units 09:41 WBC (3.8-10.6) k/uL RBC (3.80-5.40) m/uL Hgb (11.4-16.0) gm/dL Hct (34.0-46.0) % MCV (80.0-100.0) fL MCH (25.0-35.0) pg MCHC (31.0-37.0) g/dL RDW (11.5-15.5) % Plt Count (150-450) k/uL MPV Neutrophils % % Lymphocytes % % Monocytes % % Eosinophils % % Basophils % % Neutrophils # (1.3-7.7) k/uL Lymphocytes # (1.0-4.8) k/uL Monocytes # (0-1.0) k/uL Eosinophils # (0-0.7) k/uL Basophils # (0-0.2) k/uL PT (10.0-12.5) sec INR (<1.2) APTT (22.0-30.0) sec D-Dimer (<0.60) mg/L FEU Sodium (137-145) mmol/L Potassium (3.5-5.1) mmol/L Chloride (98-107) mmol/L Carbon Dioxide (22-30) mmol/L Anion Gap mmol/L BUN (7-17) mg/dL Creatinine (0.52-1.04) mg/dL Est GFR (CKD-EPI)AfAm (>60 ml/min/1.73 sqM) Est GFR (CKD-EPI)NonAf (>60 ml/min/1.73 sqM) Glucose (74-99) mg/dL Calcium (8.4-10.2) mg/dL Troponin I <0.012 (0.000-0.034) ng/mL NT-Pro-B Natriuret Pep pg/mL Disposition Clinical Impression: Leg cramping Disposition: HOME SELF-CARE Condition: Fair Instructions (If sedation given, give patient instructions): Muscle Cramp (ED) Is patient prescribed a controlled substance at d/c from ED?: No Referrals: Mark Donovan MD [Primary Care Provider] - 1-2 days Time of Disposition: 11:20
[2024-02-26 09:44] VITALS: RESP 16; TEMP 98.5
[2024-02-26 10:00] LABS: Basophils # (A) 0.1 k/uL (0-0.2); Basophils % (A) 1 %; Eosinophils # (A) 0.3 k/uL (0-0.7); Eosinophils % (A) 4 %; HCT 42.7 % (34.0-46.0); HGB 13.8 gm/dL (11.4-16.0); Lymphocytes # (A) 1.8 k/uL (1.0-4.8); Lymphocytes % (A) 22 %; MCH 28.8 pg (25.0-35.0); MCHC 32.3 g/dL (31.0-37.0); MCV 89.3 fL (80.0-100.0); Mean Platelet Volume 8.2; Monocytes # (A) 0.6 k/uL (0-1.0); Monocytes % (A) 7 %; Neutrophils # (A) 5.4 k/uL (1.3-7.7); Neutrophils % (A) 64 %; Platelet Count 219 k/uL (150-450); RBC 4.79 m/uL (3.80-5.40); RDW 13.9 % (11.5-15.5); WBC 8.4 k/uL (3.8-10.6)
[2024-02-26 10:07] LABS: INR 0.9 (<1.2); Partial Thromboplastin Time 23.4 sec (22.0-30.0); Prothrombin Time 10.4 sec (10.0-12.5)
[2024-02-26 10:15] LABS: African American GFR (CKD) >90 (>60 ml/min/1.73 sqM); Anion Gap 7 mmol/L; Blood Urea Nitrogen 20 mg/dL (7-17); Calcium 9.3 mg/dL (8.4-10.2); Carbon Dioxide 21 mmol/L (22-30); Chloride 110 mmol/L (98-107); Glucose 105 mg/dL (74-99); Non-African American GFR(CKD) >90 (>60 ml/min/1.73 sqM); Sodium 138 mmol/L (137-145)
[2024-02-26 10:16] LABS: Potassium 4.5 mmol/L (3.5-5.1)
[2024-02-26 10:23] LABS: NT-Pro-B-Type Natriuretic Pept 172 pg/mL
--- NOTE | 2024-02-26 10:30 | CT ---
CTA CHEST EXAMINATION TYPE: CT angio chest DATE OF EXAM: 02/26/2024 INDICATION: CT DLP: mGycm, Automated exposure control for dose reduction was used. CONTRAST: Patient injected with mL of . COMPARISON: TECHNIQUE: CT of the chest is performed on a spiral scan at 2 mm thick sections. Study is performed with intravenous contrast timed for evaluation for pulmonary embolism. This will limit additional po rtions of the evaluation. 3-D MIP images reconstructed by the technologist are reviewed on the compu ter in the coronal and sagittal planes. FINDINGS: No persistent filling defects are evident to suggest an acute pulmonary embolism. No mediastinal or hilar adenopathy enlarged by CT criteria is evident. The ascending aorta diameter at the level of the main pulmonary artery is 3.7 cm. The main pulmonary artery diameter at the bifurcation is 3.1 cm. Lung windows are clear. Limited CT sections were through the upper abdomen. Upper abdomen appears unremarkable. IMPRESSION: 1. No acute pulmonary embolism. 2. No acute pulmonary process.
--- NOTE | 2024-02-26 11:07 | US ---
EXAMINATION TYPE: US venous doppler duplex LE DATE OF EXAM: 02/26/2024 10:55 AM COMPARISON: NONE CLINICAL INDICATION: Female, 53 years old with history of low extremity swelling; Pt states swelling to legs s/p hernia surgery earlier this month- no known prior DVT, not on blood thinners SIDE PERFORMED: Bilateral TECHNIQUE: The lower extremity deep venous system is examined utilizing real time linear array sonog shelbi with graded compression, doppler sonography and color-flow sonography. VESSELS IMAGED: Common Femoral Vein Deep Femoral Vein Greater Saphenous Vein * Femoral Vein Popliteal Vein Small Saphenous Vein * Proximal Calf Veins (* superficial vessels) Large pt body habitus- difficult to scan Right Leg: Negative for DVT Left Leg: Negative for DVT IMPRESSION: Grayscale, color doppler, spectral doppler imaging performed of the deep veins of the lo wer extremities. There is normal flow, compressibility, vascular waveforms.
[2024-02-26 12:19] VITALS: BP 114/83; PULSE 71
== END 2024-02-26 12:02 | disposition home or self-care (01) ==
LOC: EC 09:09
DX: R25.2 Cramp and spasm (principal); Z87.891 Personal history of nicotine dependence; Z88.5 Allergy status to narcotic agent; Z88.6 Allergy status to analgesic agent; Z98.890 Other specified postprocedural states
CPT/HCPCS: 36415; 93005; 85379; 83880; 80048; 84484; 85025; 85610; 85730; 93970; 71275; 99284; Q9967

== ENCOUNTER → 2024-07-30 | Outpatient (CLI) | payer MEDICAID ==
--- NOTE | 2024-07-30 11:54 | XR ---
EXAMINATION TYPE: XR chest 2V DATE OF EXAM: 07/30/2024 10:40 AM COMPARISON: Chest radiographs from 02/10/2024 CLINICAL INDICATION: Female, 54 years old with history of pneumonia; [facility] TECHNIQUE: XR chest 2V Frontal and lateral views of the chest. FINDINGS: Lungs/Pleura: Right middle lobe airspace opacities. There is no evidence of pleural effusion, left fo charlene consolidation, or pneumothorax. Pulmonary vascularity: Unremarkable. Heart/mediastinum: Cardiomediastinal silhouette is unremarkable. Musculoskeletal: No acute osseous pathology. IMPRESSION: Right middle lobe airspace opacities probably for pneumonia. [facility], , 07/30/2024 11:52 AM
== END | disposition home or self-care (01) ==
LOC: RADXRMAIN 10:25
PROVIDERS: ATTEND Internal Medicine Critical Care Medicine
DX: J18.9 Pneumonia, unspecified organism (principal); R91.8 Other nonspecific abnormal finding of lung field
CPT/HCPCS: 71046

== ENCOUNTER → 2024-12-30 | Outpatient (CLI) | payer MEDICAID ==
--- NOTE | 2024-12-30 15:07 | MM ---
Reason for Exam: Screening (asymptomatic). Last mammogram was performed 2 year(s) and 1 month(s) ago. Patient History: Menarche at age 12. First Full-Term at age 19. Postmenopausal. Hormonal Contraceptives, starting at age 16 for 28 years. Maternal cousin had breast cancer, age 52. Risk Values: Natasha 5 year model risk: 1.1%. NCI Lifetime model risk: 7.4%. Prior Study Comparison: 04/22/2018 Bilateral Screening Mammogram, [facility]. 06/01/2021 Bilateral Screening Mammogram, [facility]. 12/12/2022 Bilateral MG 3D screening mammo w/cad, [facility]. Tissue Density: The breasts are almost entirely fatty. Findings: Analyzed By CAD. There is no suspicious group of microcalcifications or new suspicious mass in either breast. Overall Assessment: Negative, BI-RAD 1 Management: Screening Mammogram of both breasts in 1 year. . Patient should continue monthly self-breast exams. A clinical breast exam by your physician is recommended on an annual basis. This exam should not preclude additional follow-up of suspicious palpable abnormalities. Note on Natasha scores and lifetime risk: 1. A Natasha score greater than 3% is considered moderate risk. If this is the case, consider specialist referral to assess eligibility for a risk reducing agent. 2. If overall lifetime risk for the development of breast cancer is 20% or higher, the patient may qualify for future screening with alternating mammogram and breast MRI. [facility], , 12/30/2024 3:04 PM. Electronically signed and approved by: Jacinto Soto M.D. Radiologis
== END | disposition home or self-care (01) ==
LOC: RADMAMWWP 14:35
PROVIDERS: ATTEND Family Medicine
DX: Z12.31 Encounter for screening mammogram for malignant neoplasm of breast (principal); R92.313 Mammographic fatty tissue density, bilateral breasts; Z78.0 Asymptomatic menopausal state; Z80.3 Family history of malignant neoplasm of breast
CPT/HCPCS: 77063; 77067

== ENCOUNTER 2025-01-14 07:39 | Emergency (ER) | payer MEDICAID ==
[2025-01-14] MEDS: KETOROLAC 15 MG/ML 1 ML VIAL IM STA ×2 (07:58→10:03)
[2025-01-14] MEDS: ORPHENADRINE 30 MG/ML 2 ML VIAL IM STA (07:59)
[2025-01-14] MEDS: LIDOCAINE 4% PATCH TOPICAL ONE (07:59)
--- NOTE | 2025-01-14 08:04 | ED ---
Back Pain [facility] - General Chief Complaint: Back Pain/Injury Stated Complaint: Lower Back Pain Time Seen by Provider: 01/14/25 07:47 Source: patient, RN notes reviewed Mode of arrival: ambulatory Limitations: no limitations - History of Present Illness Initial Comments: This is a 54-year-old female who presents to the emergency department for mid to lower back pain. States that it started 3 days ago and seems to be getting worse. Pain is much worse with movement. 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 She had also been helping her mother move furniture. Denies any radiation of pain. Denies any loss of bowel/bladder control or saddle anesthesia. She currently takes Celebrex for pain, which has not been effective. Denies any history of problems with her back like this in the past. MD Complaint: back pain - Related Data Home Medications Medication Instructions Recorded Confirmed Calcium/Magnes 1 tab PO DAILY 11/07/20 02/04/24 Vitamin B Complex 1 cap PO DAILY 11/07/20 02/04/24 Albuterol Inhaler [Ventolin Hfa 1 - 2 puff INHALATION Q6H PRN 02/04/24 02/04/24 Inhaler] Ascorbic Acid [Vitamin C] 500 mg PO DAILY 02/04/24 02/04/24 Cholecalciferol (Vitamin D3) 125 mcg PO DAILY 02/04/24 02/04/24 [Vitamin D3 (125 MCG = 5,000 IU)] Folic Acid 0.8 mg PO DAILY 02/04/24 02/04/24 L.acidoph,Paracasei, B.lactis 1 each PO DAILY 02/04/24 02/04/24 [Probiotic] Losartan-Hctz 50-12.5 mg [Hyzaar 1 tab PO DAILY 02/04/24 02/04/24 50-12.5] Lysine [l-Lysine] 600 mg PO DAILY 02/04/24 02/04/24 Mometasone/Formoterol [Dulera 100 1 puff INHALATION DIRECTED 02/04/24 02/04/24 Mcg-5 Mcg Inhaler] Montelukast [Singulair] 10 mg PO DAILY 02/04/24 02/04/24 Previous Rx's Medication Instructions Recorded Ibuprofen [Motrin] 600 mg PO Q6HR PRN #120 tab 02/09/24 traMADol HCl [Ultram] 50 mg PO Q6H PRN #10 tab 02/09/24 Lidocaine 5% Patch [Lidoderm 5% 1 patch TOPICAL DAILY PRN #30 patch 01/14/25 Patch] methocarbamoL [Robaxin-750] 1,500 mg PO TID PRN #30 tab 01/14/25 predniSONE 50 mg PO DAILY 5 Days #5 tab 01/14/25 Allergies Allergy/AdvReac Type Severity Reaction Status Date / Time acetaminophen AdvReac "don't Verified 01/14/25 07:44 [From Tylenol-Codeine #3] like the feeling, loopy" codeine AdvReac "don't Verified 01/14/25 07:44 [From Tylenol-Codeine #3] like the feeling, loopy" Review of Systems ROS Statement: Those systems with pertinent positive or pertinent negative responses have been documented in the HPI. ROS Other: All systems not noted in ROS Statement are negative. Past Medical History Past Medical History: Asthma, COPD, Hypertension, Osteoarthritis (OA), Sleep Disk Recoater ea/CPAP/BIPAP Additional Past Medical History / Comment(s): uses CPAP machine History of Any Multi-Drug Resistant Organisms: None Reported Past Surgical History: Adenoidectomy, Section, Cholecystectomy, Hernia Repair, Orthopedic Surgery, Tonsillectomy Additional Past Surgical History / Comment(s): rt knee arthroscopy, trigger thumb, septoplasty, umbilical hernia, Past Anesthesia/Blood Transfusion Reactions: No Reported Reaction Past Psychological History: No Psychological Hx Reported Smoking Status: Former smoker Past Alcohol Use History: Rare Past Drug Use History: None Reported - Past Family History Father Family Medical History: Diabetes Mellitus Additional Family Medical History / Comment(s): "heart problems" General Exam Limitations: no limitations General appearance: alert, in distress Head exam: Present: atraumatic, normocephalic, normal inspection Respiratory exam: Present: normal lung sounds bilaterally. Absent: respiratory distress, wheezes, rales, rhonchi, stridor Cardiovascular Exam: Present: regular rate, normal rhythm Neurological exam: Present: alert, oriented X3, CN II-XII intact Psychiatric exam: Present: normal affect, normal mood Skin exam: Present: warm, dry, intact, normal color. Absent: rash Course Vital Signs 01/14/25 01/14/25 01/14/25 07:42 08:30 09:31 Temperature 97.8 F 98.4 F 98.3 F Pulse Rate 69 62 62 Respiratory 18 18 16 Rate Blood Pressure 156/101 136/78 125/79 O2 Sat by Pulse 97 98 98 Oximetry 01/14/25 10:18 Temperature 98.1 F Pulse Rate 646 H Respiratory 16 Rate Blood Pressure 124/81 O2 Sat by Pulse 98 Oximetry Medical Decision Making - Medical Decision Making This is a 54-year-old female who presents to the emergency department for back pain. Was pt. sent in by a medical professional or institution? @ -No Did you speak to anyone other than the patient for history? @ -No Did you review nursing and triage notes? @ -Yes, and I agree, it is accurate with regards to the patient's symptoms. Were old charts reviewed? @ -No Differential Diagnosis? @ -Differential Back Pain: Strain, zoster, cauda equina syndrome, epidural abscess, vertebral osteomyelitis, discitis, fracture, subluxation, disc herniation, DJD, spinal stenosis, dissection, AAA, pancreatitis, peptic ulcer disease, pyelonephritis, kidney stone, this is not meant to be an all-inclusive list. EKG interpreted by me (3pts min.)? @ -Not obtained X-rays interpreted by me (1pt min.)? @ -X-ray of the lumbar spine obtained. My interpretation identifies no acute fractures. CT interpreted by me (1pt min.)? @ -Not obtained U/S interpreted by me (1pt. min.)? @ -Not obtained What testing was considered but not performed? (CT, X-rays, U/S, labs)? Why? @ -None What meds were considered but not given? Why? @ -None Did you discuss the management of the patient with other professionals? @ -No Did you reconcile home meds? @ -No Was smoking cessation discussed for >3mins.? @ -No Was critical care preformed (if so, how long)? @ -No Were there social determinants of health that impacted care today? How? (Homelessness, low income, unemployed, alcoholism, drug addiction, transportation, low edu. Level, literacy, decrease access to med. care, residential, rehab)? @ -No Was there de-escalation of care discussed even if they declined? (Discuss DNR or withdrawal of care, Hospice)? @ -No What co-morbidities impacted this encounter? (DM, HTN, Smoking, COPD, CAD, Cancer, CVA, Hep., AIDS, mental health diagnosis, sleep apnea, morbid obesity)? @ -None Was patient admitted / discharged? @ -Discharged. Urinalysis negative for signs of infection. X-ray of the lumbar spine obtained revealing degenerative changes without any acute process. Symptoms likely related to a lumbar strain. Pain was treated in the emergency department. Prescription for prednisone, Robaxin, and lidocaine patches provided with dosing instructions reviewed. She is already established with [facility]. Advised that she can follow-up with Dr. Chang if symptoms persist. Patient discharged home in stable condition. Case discussed with ED attending Dr. Azul. Return precautions reviewed in depth, the patient is instructed to return to the emergency department with any new, worsening, or concerning symptoms. Patient verbalized understanding. Undiagnosed new problem with uncertain prognosis? @ -None Drug Therapy requiring intensive monitoring for toxicity (Heparin, Nitro, Ins ulin, Cardizem)? @ -None Were any procedures done? @ -None Diagnosis/symptom? @ -Lumbar strain Acute, or Chronic, or Acute on Chronic? @ -Acute Uncomplicated (without systemic symptoms) or Complicated (systemic symptoms)? @ -Uncomplicated Side effects of treatment? @ -None Exacerbation, Progression, or Severe Exacerbation] @ -Not applicable Poses a threat to life or bodily function? @ -No - Lab Data Lab Results 01/14/25 Range/Units 08:50 Urine Color Yellow Urine Appearance Clear (Clear) Urine pH 6.5 (5.0-8.0) Ur Specific Le[place]on 1.018 (1.001-1.035) Urine Protein Negative (Negative) Urine Glucose (UA) Negative (Negative) Urine Ketones Negative (Negative) Urine Blood Negative (Negative) Urine Nitrite Negative (Negative) Urine Bilirubin Negative (Negative) Urine Urobilinogen <2.0 (<2.0) mg/dL Ur Leukocyte Esterase Negative (Negative) - Radiology Data Radiology results: report reviewed, image reviewed Disposition Clinical Impression: Strain of lumbar region Disposition: HOME SELF-CARE Instructions (If sedation given, give patient instructions): Low Back Strain (ED), Acute Low Back Pain (ED) Additional Instructions: Return to the emergency department with any new, worsening, or concerning symptoms. Take the prednisone daily for 5 days. Take the Robaxin as 1 to 2 tablets up to 3-4 times daily. You can also apply the lidocaine patches daily. Follow-up with orthopedics if symptoms do not improve. Follow up with your primary care provider in 1-2 days. Prescriptions: Lidocaine 5% Patch [Lidoderm 5% Patch] 1 patch TOPICAL DAILY PRN #30 patch PRN Reason: Pain predniSONE 50 mg PO DAILY 5 Days #5 tab methocarbamoL [Robaxin-750] 1,500 mg PO TID PRN #30 tab PRN Reason: Pain Is patient prescribed a controlled substance at d/c from ED?: No Referrals: Mark Donovan MD [Primary Care Provider] - 1-2 days Eliel Chang DO [Doctor of Osteopathic Medicine] - 1-2 days Time of Disposition: 09:51
[2025-01-14] MEDS: HYDROmorphone 1 MG/ML 1 ML SYRINGE IM STA (08:37)
--- NOTE | 2025-01-14 08:43 | XR ---
EXAMINATION TYPE: XR lumbar spine 3V DATE OF EXAM: 01/14/2025 8:25 AM COMPARISON: 04/25/2021 CLINICAL INDICATION: Female, 54 years old with history of Pain; PHH, pain FINDINGS: There is leftward focal shift. Cholecystectomy clips. 5 lumbar type vertebral bodies. DISH with mild to moderate degenerative disc disease in the visualized lower thoracic spine. Mild degenera tive disc disease upper lumbar spine. Facet arthropathy mid to lower lumbar spine. Mild degenerative disc disease L5-S1. Vertebral body heights are preserved and alignment is maintained. IMPRESSION: 1. Mild to moderate degenerative disc disease along with DISH in the visualized lower thoracic spine. 2. Additional mild degenerative disc disease upper lumbar spine and at L5-S1. 3. Some facet arthropathy mid to lower lumbar spine. No vertebral compression collapse or malalignmen t. [facility], Workstation: [facility], 01/14/2025 8:41 AM
[2025-01-14 09:14] LABS: Appearance,Urine Clear (Clear); Bilirubin,Urine Negative (Negative); Blood,Urine Negative (Negative); Color,Urine Yellow; Glucose,Urine (UA) Negative (Negative); Ketones,Urine Negative (Negative); Leukocyte Esterase,Urine Negative (Negative); Nitrite,Urine Negative (Negative); PH, Urine 6.5 (5.0-8.0); Protein,Urine Negative (Negative); Specific Gravity,Urine 1.018 (1.001-1.035); Urobilinogen,Urine <2.0 mg/dL (<2.0)
[2025-01-14 09:31] VITALS: RESP 16
[2025-01-14] MEDS: traMADol 50 MG STARTER PACK 3 TAB BTL PO STA (10:02)
[2025-01-14] MEDS: HYDROmorphone 0.5 MG/0.5 ML SYRINGE IM STA (10:04)
[2025-01-14 10:19] VITALS: BP 124/81; PULSE 646; TEMP 98.1
== END 2025-01-14 10:19 | disposition home or self-care (01) ==
LOC: EC 07:39
DX: S39.012A Strain of muscle, fascia and tendon of lower back, initial encounter (principal); Z87.891 Personal history of nicotine dependence; Z88.6 Allergy status to analgesic agent; Z88.5 Allergy status to narcotic agent; X50.0XXA Overexertion from strenuous movement or load, initial encounter
CPT/HCPCS: 81003; 72100; 99283; 96372; J2360; J3360; J1171 ×2; J1885

== ENCOUNTER → 2025-02-09 | Outpatient (CLI) | payer MEDICAID ==
--- NOTE | 2025-02-10 08:12 | CA ---
Transthoracic Echo Report Name: Mary Beth Dhillon Age: 54 Gender: F : 1970 Exam Date: 02/09/2025 14:48 Exam Location: [place] [facility] Ht (in): 62 Wt (lb): 280 Ordering Physician: Jamia Malhotra MD ([id number]) Attending/Referring Phys: Jacqueline Bourne [facility] Auditor Supervisor Altagracia Lu RDCS Procedure CPT: Indications: R06.00 DYSPNEA, UNSPECIFIED Cardiac Hx: Technical Quality: Fair Contrast 1: Total Dose (mL): Contrast 2: Total Dose (mL): MEASUREMENTS (Male / Female) Normal Values 2D ECHO LV Diastolic Diameter PLAX 4.2 cm 4.2 - 5.9 / 3.9 - 5.3 cm LV Systolic Diameter PLAX 2.6 cm IVS Diastolic Thickness 1.1 cm 0.6 - 1.0 / 0.6 - 0.9 cm LVPW Diastolic Thickness 1.2 cm 0.6 - 1.0 / 0.6 - 0.9 cm LV Relative Wall Thickness 0.5 RV Internal Dim ED PLAX 2.9 cm LA Systolic Diameter LX 3.5 cm 3.0 - 4.0 / 2.7 - 3.8 cm LV Diastolic Volume MOD 4C 67.3 cm??? LV Systolic Volume MOD 4C 30.7 cm??? LV Ejection Fraction MOD 4C 54.4 % LV Cardiac Index MOD 4C 1126.4 cm???/min???m??? LV Diastolic Length 4C 6.2 cm LV Systolic Length 4C 5.2 cm LV Diastolic Volume MOD 2C 52.6 cm??? LV Systolic Volume MOD 2C 26.0 cm??? LV Ejection Fraction MOD 2C 50.5 % LV Cardiac Index MOD 2C 817.1 cm???/min???m??? LV Diastolic Length 2C 7.6 cm LV Systolic Length 2C 6.6 cm LA Volume 39.2 cm??? 18 - 58 / 22 - 52 cm??? LA Volume Index 16.1 cm???/m??? 16 - 28 cm???/m??? M-MODE Aortic Root Diameter MM 3.4 cm AV Cusp Separation MM 2.3 cm DOPPLER AV Peak Velocity 170.3 cm/s AV Peak Gradient 11.6 mmHg MV Area PHT 3.2 cm??? Mitral E Point Velocity 110.2 cm/s Mitral A Point Velocity 113.7 cm/s Mitral E to A Ratio 1.0 MV Deceleration Time 238.7 ms TR Peak Velocity 225.8 cm/s TR Peak Gradient 20.4 mmHg Right Ventricular Systolic Press 25.4 mmHg FINDINGS Left Ventricle Left ventricular ejection fraction is estimated at 55-60 %. Left ventricular cavity size normal. Mildly increased septal wall thickness. Mildly increased posterior wall thickness. Normal left ventricular wall motion. Right Ventricle Normal right ventricular size. Right ventricular systolic pressure within normal limits. Right Atrium Normal right atrial size. No right atrial thrombus or mass seen. Left Atrium Normal left atrial size. No left atrial thrombus or mass present. Mitral Valve Structurally normal mitral valve. No mitral stenosis, regurgitation or prolapse. Aortic Valve Trileaflet aortic valve. No aortic valve stenosis or regurgitation. Tricuspid Valve Structurally normal tricuspid valve. Mild tricuspid regurgitation. Pulmonic Valve Structurally normal pulmonic valve. No pulmonic regurgitation. Pericardium No pericardial effusion, probable fat pad Aorta Normal size aortic root and proximal ascending aorta. CONCLUSIONS Normal LV size and systolic function. No significant abnormality in the Doppler exam. No pericardial effusion, probable fat pad Previewed by: Dr. Kizzy Mcgovern MD (Electronically Signed) Final Date: 10 Feb 2025 08:11
== END | disposition home or self-care (01) ==
LOC: RADECHMAIN 14:38
PROVIDERS: ATTEND Internal Medicine Interventional Cardiology
DX: I07.1 Rheumatic tricuspid insufficiency (principal); R06.00 Dyspnea, unspecified
CPT/HCPCS: 93306

== ENCOUNTER → 2025-04-26 | Outpatient (CLI) | payer MEDICAID ==
[2025-04-26 10:12] LABS: Basophils # (A) 0.07 X 10*3/uL (0.00-0.10); Basophils % (A) 0.9 %; Eosinophils # (A) 0.46 X 10*3/uL (0.04-0.35); Eosinophils % (A) 5.8 %; HCT 44.5 % (37.2-46.3); HGB 14.1 g/dL (12.0-15.0); Immature Grans, Automated 0.30 %; Lymphocytes # (A) 1.64 X 10*3/uL (0.90-5.00); Lymphocytes % (A) 20.8 %; MCH 28.3 pg (27.0-32.0); MCHC 31.7 g/dL (32.0-37.0); MCV 89.4 FL (80.0-97.0); Monocytes # (A) 0.80 X 10*3/uL (0.20-1.00); Monocytes % (A) 10.1 %; NRBC Per 100 WBC 0 X 10*3/uL (0.00-0.01); Neutrophils # (A) 4.91 X 10*3/uL (1.80-7.70); Neutrophils % (A) 62.1 %; Platelet Count 268 X 10*3/uL (140-440); RBC 4.98 X 10*6/uL (4.10-5.20); RDW 12.8 % (11.5-14.5); WBC 7.90 X 10*3/uL (4.50-10.00)
[2025-04-26 10:45] LABS: ALT 42 U/L (8-44); AST 44 U/L (13-35); Albumin 3.9 g/dL (3.8-4.9); Albumin/Globulin Ratio 1.50 Ratio (1.60-3.17); Alkaline Phosphatase 127 U/L (41-126); Anion Gap 12.50 mmol/L (4.00-12.00); BUN/Creat Ratio 10.14 Ratio (12.00-20.00); Blood Urea Nitrogen 7.1 mg/dL (9.0-27.0); Calcium 9.0 mg/dL (8.7-10.3); Carbon Dioxide 22.5 mmol/L (21.6-31.8); Chloride 106 mmol/L (96-109); Cholesterol 167.00 mg/dL (0.00-200.00); Globulin 2.6 g/dL (1.6-3.3); Glucose 116 mg/dL (70-110); HDL Cholesterol 39.00 mg/dL (40.00-60.00); LDL Cholesterol,Calculated 96.8 mg/dL (0.0-131.0); Potassium 4.3 mmol/L (3.5-5.5); Sodium 141 mmol/L (135-145); T4, Free (Free Thyroxine) 1.04 ng/dL (0.80-1.80); Total Protein 6.5 g/dL (6.2-8.2); Triglycerides 156.00 mg/dL (0.00-149.00); VLDL Calculation 31.20 mg/dL (5.00-40.00)
[2025-04-26 15:51] LABS: Bilirubin,Urine Negative (Negative); Blood,Urine Negative (Negative); Color,Urine Yellow (Yellow); Ketones,Urine Trace (Negative); Nitrite,Urine Negative (Negative); PH, Urine 6.0; Specific Gravity,Urine 1.019 (1.001-1.030); Urobilinogen,Urine 1.0 E.U./DL
[2025-04-26 16:13] LABS: Bacteria,Urine Trace (None Seen)
== END | disposition home or self-care (01) ==
LOC: LABWHC1 07:26
PROVIDERS: ATTEND Physician Assistant
DX: I10 Essential (primary) hypertension (principal); R63.1 Polydipsia
CPT/HCPCS: 36415; 80053; 80061; 81001; 82306; 84439; 84443; 85025